=== PATIENT | female | born 1945 | race Caucasian/White ===

== ENCOUNTER → 2016-03-30 | Outpatient (CLI) | payer MEDICARE, OTHER ==
--- NOTE | 2016-03-31 08:16 | BD ---
EXAMINATION TYPE: MG DEXA axial skeleton. DATE OF EXAM: 03/30/2016 3:04 PM COMPARISON: NONE CLINICAL HISTORY: Z78.0 POST MENOPAUSAL W/O HRT Height: 62 Weight: 138 FRAX RISK QUESTIONS: Alcohol (3 or more units per day): NO Family History (Parent hip fracture): NO Glucocorticoids (More than 3mos): NO (Ex: prednisone, prednisolone, methylprednisolone, dexamethasone, and hydrocortisone). History of Fracture in Adulthood: NO Secondary Osteoporosis: NO 1. Type 1 Diabetes: NO 2. Hyperthyroidism: NO 3. Menopause before 45: NO 4. Malnutrition: NO 5. Chronic liver disease: NO Rheumatoid Arthritis: NO Current Tobacco Use: NO RISK FACTORS HISTORY OF: Family History of Osteoporosis: NONE AWARE OF Drink Alcohol: RARE Active: YES Diet low in dairy products/other sources of calcium: YES, LOW Postmenopausal woman: 53 Lost more than 2 inches in height since high school: NO Adrenal Insufficiency: NO MEDICATIONS: Additional Medications: BP MEDS INCLUDING EYES, VIT D3 2000MG, STATINS FOR CHOLESTEROL , Additional History: GLUCOMA, HYPERTENSION, EXAM MEASUREMENTS: Bone mineral densitometry was performed using the [employer] System. Bone mineral density as measured about the Lumbar spine is: ----- L1-L4(G/cm2): 1.205 T Score Values are as follows: ----- L1: -0.2 ----- L2: -0.6 ----- L3: 0.4 ----- L4: 0.9 ----- L1-L4: 0.2 Bone mineral density THIS IS HER FIRST BONE DENSITY TEST.......BASELINE Bone mineral density about the R hip (g/cm2): 0.866 Bone mineral density about the L hip (g/cm2): 0.841 T Score values are as follows: -----R Neck: -1.2 -----L Neck: -1.4 -----R Intertrochanter: -2.1 -----L Intertrochanter: -2.5 Bone mineral density FIRST BONE DENSITY TEST TODAY.....BASELINE FRAX %'S: FOR MAJOR OSTEOPOROSIS FX: 9.8%....FOR HIP FX: 1.3% PROBABILITY OF FX IN 10 YRS TIME IMPRESSION: Osteopenia in both hips. (T Score between -2.5 and -1 as noted by T score values There is slightly increased risk of fracture and the patient may be considered for treatment. Re-Screen 1-2 years. NOTE: T-SCORE=SD OF THE YOUNG ADULT MEAN.
--- NOTE | 2016-03-31 10:51 | MM ---
Reason for exam: screening (asymptomatic). Last mammogram was performed 3 years and 8 months ago. Physical Findings: A clinical breast exam by your physician is recommended on an annual basis and results should be correlated with mammographic findings. MG 3D Screening Mammo W/Cad Bilateral CC and MLO view(s) were taken. Prior study comparison: July 24, 2012, bilateral digital screening mammo w/CAD. February 27, 2011, bilateral digital screening mammo w/CAD. There are scattered fibroglandular densities. No significant changes when compared with prior studies. ASSESSMENT: Negative, BI-RAD 1 RECOMMENDATION: Routine screening mammogram of both breasts in 1 year.
== END | disposition home or self-care (01) ==
LOC: RADMAMWWP 14:25
PROVIDERS: ATTEND Family Medicine
DX: Z12.31 Encounter for screening mammogram for malignant neoplasm of breast (principal); M85.80 Other specified disorders of bone density and structure, unspecified site; Z78.0 Asymptomatic menopausal state
CPT/HCPCS: 77080; 77063; G0202

== ENCOUNTER → 2017-12-26 | Outpatient (CLI) | payer MEDICARE, OTHER ==
--- NOTE | 2017-12-27 13:01 | MM ---
Reason for exam: screening (asymptomatic). Last mammogram was performed 1 year and 9 months ago. History: Patient is postmenopausal. MG 3D Screening Mammo W/Cad Bilateral CC and MLO view(s) were taken. Prior study comparison: March 30, 2016, bilateral MG 3d screening mammo w/cad. July 24, 2012, bilateral digital screening mammo w/CAD. The breast tissue is heterogeneously dense. This may lower the sensitivity of mammography. No discrete abnormallity. No significant new finding since most recent study. ASSESSMENT: Negative, BI-RAD 1 RECOMMENDATION: Routine screening mammogram of both breasts in 1 year.
== END ==
LOC: RADMAMWWP 16:15
PROVIDERS: ATTEND Family Medicine
DX: Z12.31 Encounter for screening mammogram for malignant neoplasm of breast (principal)
CPT/HCPCS: 77063; 77067

== ENCOUNTER → 2018-02-04 | Outpatient (CLI) | payer MEDICARE, OTHER ==
--- NOTE | 2018-02-04 12:08 | CT ---
EXAMINATION TYPE: CT abdomen pelvis w con DATE OF EXAM: 02/04/2018 HISTORY: Follow up failed colonoscopy and failed BE. CT DLP: 977mGycm Automated Exposure Control for Dose Reduction was Utilized. CONTRAST: CT scan of the abdomen and pelvis is performed with IV Contrast, patient injected with 100 mL of Isov ue M300. COMPARISON: None FINDINGS: LUNG BASES: No significant abnormality is appreciated. LIVER/GB: No significant abnormality is appreciated. PANCREAS: No significant abnormality is seen. SPLEEN: No significant abnormality is seen. ADRENALS: No significant abnormality is seen. KIDNEYS: No significant abnormality is seen. BOWEL: The oral contrast reaches level of the proximal sigmoid colon making evaluation distal bowel s lightly suboptimal. There is no suspicious dilatation of stomach or duodenal sweep. There is no suspi cious small or large bowel dilatation. There are diverticula in the sigmoid colon. There is moderate wall thickening with poor distention in the mid to distal sigmoid colon in the left pelvis axial flex ge 73 . If this is area of failed colonoscopy and/or enema study, neoplasm needs to BE considered . N o suspicious adjacent adenopathy is present. There is mild adjacent fluid and/or fat stranding with s ome sinus tract and/or fistula formation noted for reference axial image 73 between portions of the s igmoid colon. These findings make this area more suspicious. UTERUS/ADNEXA: Heterogeneous anteverted uterus is seen with small calcific focus axial image 75. No s uspicious adnexal masses are present. LYMPH NODES: No greater than 1cm abdominal or pelvic lymph nodes are appreciated. OSSEOUS STRUCTURES: Moderate to advanced disc space narrowing with vacuum disc phenomenon L5-S1 level is present. Mild to moderate axial joint space loss in both hips is seen OTHER: Attention to mid to distal sigmoid colon centered left pelvis as detailed above. Consider surg ical exploration given patient history based on clinical correlation. IMPRESSION: No significant acute finding is seen to account for patient's clinical symptoms.
== END | disposition home or self-care (01) ==
LOC: RADCTMAIN 09:45
PROVIDERS: ATTEND Family Medicine
DX: K63.5 Polyp of colon (principal); Z01.812 Encounter for preprocedural laboratory examination
CPT/HCPCS: 82565; 84520; 74177; 36415; Q9967

== ENCOUNTER → 2018-03-18 | Outpatient (CLI) | payer MEDICARE ==
--- NOTE | 2018-03-18 11:48 | FL ---
EXAMINATION TYPE: FL barium enema DATE OF EXAM: 03/18/2018 COMPARISON: CT dated 02/04/2018 HISTORY: Abnormal CT. Prior incomplete colonoscopy. Positive cologaurd exam. TECHNIQUE: A double contrast barium enema study is performed. 1 minute and 59 seconds of fluoroscopy was utilized with 54 fluoroscopic images saved. 1200 mL of liquid polibar plus was utilized. FINDINGS: Academic Affairs Vice President view of the abdomen shows overall non-obstructive bowel gas pattern. 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 There are numerous sigmoid diverticula. Within the distal sigmoid colon at the location seen on the exam of 02/04/2018 there is a long segment persisten t narrowing that when correlated with the prior CT remain suspicious for neoplasm. Alternatively this could represent sequela of chronic diverticulitis. Numerous diverticula are seen throughout the colo n. Appendix is seen and within normal limits. No evidence of contrast extravasation. IMPRESSION: 1. Long segment bowel wall thickening of the sigmoid colon with corresponding with the prior CT findi ngs of the CT abdomen pelvis on 02/04/2018 are suspicious for sigmoid colonic neoplasm. Alternatively this could relate to sequela of chronic diverticulitis. 2. 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
== END ==
LOC: RADFLMAIN 08:45
PROVIDERS: ATTEND Family Medicine
DX: K63.89 Other specified diseases of intestine (principal)
CPT/HCPCS: 74270

== ENCOUNTER → 2018-04-08 | Outpatient (CLI) | payer MEDICARE ==
--- NOTE | 2018-04-08 11:34 | ECHOS ---
STRESS ECHOCARDIOGRAM DATE OF SERVICE: 04/08/2018 INDICATIONS: Abnormal EKG and preop cardiac assessment. MEDICATIONS: Pravastatin, Timolol, aspirin. BASELINE HEART RATE: 77 BASELINE BLOOD PRESSURE: 175/86 MAXIMUM HEART RATE: 136 MAXIMUM BLOOD PRESSURE: 207/64 85% MPHR: 127 100% MPHR: 149 METS: 8.5 MAXIMUM STAGE REACHED: III TOTAL EXERCISE TIME: 7 minutes CLINICAL INFORMATION: STRESS DATA: Pretesting physical examination showed a heart rate of 77, pressure is 175/86 mmHg. Baseline EKG showed sinus mechanism with ST changes in the inferolateral leads. The patient exercised on the treadmill according to Fan protocol for a total of 7 minutes and achieved 8.5 METs. Max heart rate was 136 which is about 88, which is about 91% of maximum predicted heart rate. Maximum blood pressure was 207/64 mmHg. Clinically the patient did not have any symptoms of chest pain or discomfort but the EKG showed about 2 mm horizontal and downsloping ST-segment changes quite concerning for ischemia. ECHOCARDIOGRAM IMAGES: On echo from parasternal long axis view, parasternal short axis view, apical 4 chambers and apical 2 chamber view were obtained as the baseline images, at peak heart rate, as well as on recovery. The baseline echocardiographic images did show a basal hypokinesia at baseline as well as at peak heart rate as well as on recovery. CONCLUSION: 1. Good exercise tolerance. 2. Abnormal EKG in response to exercise. 3. Abnormal echocardiogram in response to exercise with evidence of inferior basal wall motion abnormalities likely represent prior myocardial infarction without any evidence of inducible ischemia noted at this point. MMODL / IJN: [id number] /
== END ==
LOC: RADNMMAIN 08:58
PROVIDERS: ATTEND Family Medicine
DX: R94.31 Abnormal electrocardiogram [ECG] [EKG] (principal)
CPT/HCPCS: 93351

== ENCOUNTER → 2018-04-11 | Outpatient (CLI) | payer MEDICARE ==
--- NOTE | 2018-04-11 09:46 | XR ---
EXAMINATION TYPE: XR chest 2V DATE OF EXAM: 04/11/2018 COMPARISON: NONE HISTORY: Presurgical study. TECHNIQUE: Frontal and lateral views of the chest are obtained. FINDINGS: There is no focal air space opacity, pleural effusion, or pneumothorax seen. The cardiac silhouette size is within normal limits. The osseous structures are intact. IMPRESSION: No acute cardiopulmonary process.
[2018-04-11 09:51] LABS: Basophils % (A) 1 %; Eosinophils # (A) 0.1 k/uL (0-0.7); Eosinophils % (A) 1 %; HCT 45.4 % (34.0-46.0); Lymphocytes # (A) 1.9 k/uL (1.0-4.8); Lymphocytes % (A) 36 %; MCH 31.2 pg (25.0-35.0); MCHC 32.9 g/dL (31.0-37.0); MCV 94.7 fL (80.0-100.0); Mean Platelet Volume 7.5; Monocytes # (A) 0.3 k/uL (0-1.0); Monocytes % (A) 5 %; Neutrophils # (A) 2.9 k/uL (1.3-7.7); Neutrophils % (A) 55 %; Platelet Count 202 k/uL (150-450); RBC 4.79 m/uL (3.80-5.40); RDW 12.6 % (11.5-15.5); WBC 5.3 k/uL (3.8-10.6)
[2018-04-11 09:55] LABS: Prothrombin Time 10.5 sec (9.0-12.0)
[2018-04-11 10:56] LABS: Erythrocyte Sedimentation Rate 15 mm/hr (0-20)
[2018-04-11 17:15] LABS: Albumin 4.5 g/dL (3.80-4.90); Albumin/Globulin Ratio 1.5 (1.60-3.17); Anion Gap 9.8 mmol/L (4.00-12.00); C Reactive Protein 0.5 mg/dL (0.0-0.8); Calcium 9.7 mg/dL (8.7-10.3); Carbon Dioxide 27.2 mmol/L (21.6-31.8); LDL Cholesterol,Calculated 112.6 mg/dL (0.0-131.0); Potassium 4.3 mmol/L (3.5-5.5); Total Bilirubin 0.5 mg/dL (0.3-1.2); Total Protein 7.5 g/dL (6.2-8.2); VLDL Calculation 27.4 mg/dL (5.00-40.00)
[2018-04-11 17:17] LABS: Iron Saturation 23.77 (12.00-45.00)
[2018-04-11 19:14] LABS: Hemoglobin A1C 5.8 % (4.0-6.0)
== END ==
LOC: LABWHC1 08:22
PROVIDERS: ATTEND Family Medicine
DX: Z01.810 Encounter for preprocedural cardiovascular examination (principal); K00-K95 Diseases of the digestive system; K63.5 Polyp of colon; E78.2 Mixed hyperlipidemia; R73.01 Impaired fasting glucose; R94.31 Abnormal electrocardiogram [ECG] [EKG]
CPT/HCPCS: 36415; 71046; 80053; 80061; 83036; 83540; 83550; 83880; 84443; 85025; 85610; 85652; 86140

== ENCOUNTER 2018-04-24 10:01 | Inpatient (IN) | payer MEDICARE ==
[2018-04-17 10:53] VITALS: BMI 24.7
[~2018-04-24 10:01] MED LIST: DEXAMETHASONE SOD PHOSPHATE 10 MG/ML 1 ML VIAL IV ONE; LIDOCAINE 1% 20 ML VIAL (10MG/ML) FOR IV START INTRADERMA PRN; MIDAZOLAM (PF) 2 MG/2 ML VIAL IV PRN; ONDANSETRON 4 MG/2 ML VIAL IVP ONE; SCOPOLAMINE 1.5MG/72HR PATCH TRANSDERM ONE; ceFAZolin IN SWFI 2 GM/20 ML SYRINGE IVP ONE; metroNIDAZOLE-NS PMX 500 MG in SALINE 1 100ML.BAG IVPB ONE
[2018-04-24] MEDS ORDERED: fentaNYL (PF) 50 MCG/ML 2 ML AMP IV ONE (11:21)
[2018-04-24] MEDS ORDERED: HEPARIN SODIUM,PORCINE 5,000 UNIT/ML 1 ML VIAL SQ ONE (11:32)
[2018-04-24] MEDS ORDERED: ONDANSETRON 4 MG/2 ML VIAL IVP PRN (11:44)
[2018-04-24] MEDS ORDERED: NALOXONE 0.4 MG/ML 1 ML VIAL IV PRN ×2 (11:44→12:06)
[2018-04-24] MEDS ORDERED: NALBUPHINE 10 MG/ML (1 ML AMP) IV PRN (11:44)
[2018-04-24] MEDS ORDERED: ROPIVACAINE 250 MG, HYDROMORPHONE (PF) 5 MG in SODIUM CHLORIDE 0.9% 200 ML EPIDURAL PRN (11:44)
[2018-04-24] MEDS: LACTATED RINGERS 1,000 ML IV SCH (11:46)
[2018-04-24] MEDS ORDERED: GLYCOPYRROLATE 0.2 MG/ML 2 ML VIAL ONE (11:53)
[2018-04-24] MEDS ORDERED: LIDOCAINE 1% INJ 10MG/ML (20 ML MDV) ONE (11:53)
[2018-04-24] MEDS ORDERED: fentaNYL (PF) 50 MCG/ML 2 ML AMP ONE (11:53)
[2018-04-24] MEDS ORDERED: KETOROLAC 30 MG/ML 1 ML VIAL ONE (11:53)
[2018-04-24] MEDS ORDERED: ROCURONIUM BROMIDE 10 MG/ML 10 ML VIAL IV ONE (11:53)
[2018-04-24] MEDS ORDERED: MIDAZOLAM 2 MG/2 ML VIAL ONE (11:53)
[2018-04-24] MEDS ORDERED: NEOSTIGMINE 1 MG/ML 10 ML VIAL ONE (11:53)
[2018-04-24] MEDS ORDERED: PROPOFOL 10 MG/ML 20 ML VIAL IV ONE (11:53)
[2018-04-24] MEDS ORDERED: ePHEDrine SULFATE/0.9% NACL/PF 50 MG/5 ML SYRINGE IV ONE (11:53)
[2018-04-24] MEDS ORDERED: ROPIVACAINE 250 MG, fentaNYL (PF) 1,250 MCG in SODIUM CHLORIDE 0.9% 175 ML EPIDURAL PRN (12:06)
[2018-04-24] MEDS ORDERED: BUPIVACAIN-EPI 0.5%-1:200,000 30 ML VIAL SQ ONE ×2 (12:24)
[2018-04-24] MEDS ORDERED: LACTATED RINGERS 1,000 ML IV ONE ×4 (14:02→18:22)
[2018-04-24] MEDS ORDERED: traMADol 50 MG TAB PO PRN (16:18)
--- NOTE | 2018-04-24 16:18 | P.OP ---
Date of Procedure: 04/24/18 Preoperative Diagnosis: Sigmoid colon stricture Postoperative Diagnosis: same Procedure(s) Performed: Robotic sigmoid colon resection Anesthesia: GETA Suction Dredge Dumping Supervisor #1: Rosa Holbrook Estimated Blood Loss (ml): 100 Pathology: other (sigmoid colon) Condition: stable Disposition: PACU Indications for Procedure: The patient had presented for colonoscopy. It was unsuccessful. Barium enema showed a long sigmoid shock sure. CT showed no evidence of anything concerning for cancer. Reccommendation was for sigmoid colon resection Description of Procedure: The patient's taken the operative suite where she is prepped and draped in the usual sterile manner under a general endotracheal anesthetic. An incision was made to the right of the umbilicus and an optical trocar was placed into the abdominal cavity. Pneumoperitoneum was established with CO2 gas. Sites are chosen for accessory trochars needs are placed through small skin incisions. A long segment of colon was adherent to the left pelvic sidewall, tube and ovary. The liver, diaphragm, large and small bowel were normal where they were seen. There was a 7 or 8 mm splenule noted in the omentum all the left upper quadrant. The patient was placed into reverse Trendelenburg and the paracolic gutter and splenic flexure were mobilized with harmonic scissors. The patient was then able to be placed in Trendelenburg and the small bowel was allowed to fall back out of the pelvis. Placed in a slight right Toldt. The remaining paracolic gutter was then mobilized. The colon was then mobilized off the pelvic sidewall, tube and ovary. The ureters were then carefully examined and noted to be unremarkable bilaterally. Site was chosen proximally for resection and opening was made in the mesentery. The mesentery was then taken down with a vessel sealer. The sigmoidal vessels were identified and they were secured with clips then divided with the vessel seal. Mesentery was further taken down distally to a portion of this colon which was soft. Once that was adequately freed a linear stapler was placed and fired proximally and distally. The specimen was placed out of the way. The paracolic gutter and pelvis were then irrigated and aspirated. Everything appeared to be hemostatic. It appeared a EEA anastomosis would be most beneficial. Therefore the specimen was placed near the proximal portion of the colon and it was grasped with a Jocelyn clamp through the trocar. The instruments were brought back. The left sided trocar was removed while meaning obtaining control of the specimen.. The skin and fascia were incised and bluntly opened along the direction of their fibers. The specimen was removed. The proximal portion of the bowel was then brought up. That Portion still felt a little rubbery so an additional segment was resected. The mesentery was taken down with harmonic scissors. Then a soft portion was entered of fatty tissue. The pursestring suture was placed and fired. The distal section was resected and passed off. The bowel was sized and a 29 EEA and a 29 EEA anvil was placed. The pursestring was tied down. The bowel was dropped back into the abdominal cavity. The peritoneum and posterior fascia was closed. The muscle was allowed to fall back together. Pneumoperitoneum was then reestablished. The anvil was grasped and brought down into the pelvis. I then placed a sizer per rectum and it passed easily. The stapler was then placed. The attachment prong was advanced until the orange portion was seen. An assistant chief train dispatcher held the stapler. Then robotically the anvil was advanced to the attachment prong. It did sat in place nicely. Suction Dredge Dumping Supervisor then closed the stapler until it was in the mid green portion as I ensured no redundant fatty tissue was in the staple line. The stapler was closed and fired. It was derotated and removed. The pelvis was filled up with sterile saline. A rigid sigmoidoscope was inserted and the bowel was occluded proximally. The distal portion was insufflated multiple times and was noted to have an airtight anastomosis. The excess irrigant was suctioned out. The splenic flexure and paracolic gutter were examined and noted to be hemostatic. The pneumoperitoneum was released. The trochars were removed. The fascia at the larger trocar sites was closed with 0 Vicryl. The skin was closed with sanjuana. Sterile dressings were applied. She tolerated the procedure without difficulty and was taken r ecovery room in satisfactory condition. According to or personnel all counts ARE correct.
[2018-04-24] MEDS ORDERED: HYDROmorphone 0.5 MG/0.5 ML SYRINGE IVP PRN (16:24)
[2018-04-24] MEDS ORDERED: ALPRAZolam 0.25 MG TAB PO PRN (16:26)
[2018-04-24] MEDS ORDERED: MIDAZOLAM 2 MG/2 ML VIAL IVP ONE ×2 (17:46→17:51)
[2018-04-24] MEDS ORDERED: HALOPERIDOL LACTATE 5 MG/ML 1 ML VIAL IVP ONE (18:00)
[2018-04-24] MEDS: KETOROLAC 30 MG/ML 1 ML VIAL IVP SCH (21:21)
[2018-04-24] MEDS: CARVEDILOL 3.125 MG TAB PO SCH (21:21)
[2018-04-24] MEDS: METOCLOPRAMIDE 5 MG/ML 2 ML VIAL IVP SCH (21:21)
[2018-04-24] MEDS: ceFAZolin 1,000 MG in DEXTROSE/WATER 1 50ML.BAG IVPB SCH (21:22)
[2018-04-24] MEDS: FAMOTIDINE 20 MG TAB PO SCH (21:22)
[2018-04-24] MEDS: D5-0.45% NACL WITH KCL 20MEQ/L 1,000 ML IV SCH (21:22)
[2018-04-24] MEDS: HEPARIN SODIUM,PORCINE 5,000 UNIT/ML 1 ML VIAL SQ SCH (21:23)
[2018-04-24] MEDS: metroNIDAZOLE-NS PMX 500 MG in SALINE 1 100ML.BAG IVPB SCH (22:23)
[2018-04-25] MEDS: METOCLOPRAMIDE 5 MG/ML 2 ML VIAL IVP SCH ×4 (01:53→23:53)
[2018-04-25] MEDS: KETOROLAC 30 MG/ML 1 ML VIAL IVP SCH ×4 (01:53→23:53)
[2018-04-25] MEDS: ceFAZolin 1,000 MG in DEXTROSE/WATER 1 50ML.BAG IVPB SCH (05:05)
[2018-04-25] MEDS: metroNIDAZOLE-NS PMX 500 MG in SALINE 1 100ML.BAG IVPB SCH (05:27)
[2018-04-25] MEDS: LACTATED RINGERS 1,000 ML IV SCH (05:28)
[2018-04-25] MEDS: D5-0.45% NACL WITH KCL 20MEQ/L 1,000 ML IV SCH ×2 (07:18→23:54)
[2018-04-25 08:17] LABS: Basophils % (A) 0 %; Eosinophils # (A) 0.1 k/uL (0-0.7); Eosinophils % (A) 1 %; HCT 37.1 % (34.0-46.0); HGB 12.1 gm/dL (11.4-16.0); Lymphocytes # (A) 0.8 k/uL (1.0-4.8); Lymphocytes % (A) 8 %; MCH 31.3 pg (25.0-35.0); MCHC 32.6 g/dL (31.0-37.0); MCV 96.1 fL (80.0-100.0); Mean Platelet Volume 7.3; Monocytes # (A) 0.4 k/uL (0-1.0); Monocytes % (A) 5 %; Neutrophils # (A) 8.1 k/uL (1.3-7.7); Neutrophils % (A) 86 %; Platelet Count 177 k/uL (150-450); RBC 3.86 m/uL (3.80-5.40); RDW 12.7 % (11.5-15.5); WBC 9.4 k/uL (3.8-10.6)
[2018-04-25 08:37] LABS: Albumin 3.1 g/dL (3.5-5.0); Calcium 8.7 mg/dL (8.4-10.2); Potassium 4.2 mmol/L (3.5-5.1); Total Bilirubin 0.4 mg/dL (0.2-1.3)
[2018-04-25] MEDS: CARVEDILOL 3.125 MG TAB PO SCH ×2 (10:15→18:19)
[2018-04-25] MEDS: HEPARIN SODIUM,PORCINE 5,000 UNIT/ML 1 ML VIAL SQ SCH ×2 (10:20→21:41)
[2018-04-25] MEDS: TIMOLOL 0.5% OPHTH DROPS 5 ML BTL BOTH EYES SCH (10:21)
[2018-04-25] MEDS: FAMOTIDINE 20 MG TAB PO SCH ×2 (10:22→21:41)
[2018-04-25] MEDS: ASPIRIN 81 MG PO SCH (10:22)
--- NOTE | 2018-04-25 11:14 | P.PN ---
Progress Note - Text Progress Note Date: 04/25/18 Postoperative day #1 status post robotic sigmoid resection ,epidural catheter placed for postoperative analgesia, patient doing well epidural site okay, patient currently on combination of epidural infusion solution of Ropivacaine 0.0625% and Fentanyle , per mL the infusion rate at 2 ml per hour , patient had no motor deficit epidural site okay , vital signs stable ,VAS 2/10 , Assessment and plan= post operative day #1 patient doing well ,pain well controlled , there is no anesthesia related complications
--- NOTE | 2018-04-25 12:25 | P.PN ---
Subjective Progress Note Date: 04/25/18 Principal diagnosis: S/P robotic sigmoid colon resection The patient is postop 1 from a robotic sigmoid colon resection. She feels well, denies pain, denies nausea or vomiting. Has been standing at bedside. Using the Incentive spirometry. Objective - Vital Signs Vital signs: Vital Signs Temp 97.6 F 04/25/18 07:00 Pulse 59 L 04/25/18 07:00 Resp 12 04/25/18 07:00 BP 95/55 04/25/18 07:00 Pulse Ox 96 04/25/18 07:00 Intake & Output 04/24/18 04/25/18 04/25/18 18:59 06:59 18:59 Intake Total 3600 800 Output Total 250 1300 Balance 3350 -500 Intake: IV 3600 Oral 800 Output: Urine 150 1300 Estimated Blood Loss 100 Other: Voiding Method Indwelling Catheter Indwelling Catheter - Constitutional General appearance: Present: cooperative, no acute distress - Respiratory Respiratory: bilateral: CTA - Cardiovascular Rhythm: regular - Gastrointestinal General gastrointestinal: Present: normal bowel sounds, soft. Absent: distended Localized gastrointestinal: surgical scar: diffuse (Dressings are intact clean and dry) - Labs CBC & Chem 7: 04/25/18 07:42 04/25/18 07:42 Labs: Abnormal Lab Results - Last 24 Hours (Table) 04/25/18 04/25/18 Range/Units 07:42 07:42 Neutrophils # 8.1 H (1.3-7.7) k/uL Lymphocytes # 0.8 L (1.0-4.8) k/uL Sodium 135 L (137-145) mmol/L Glucose 175 H (74-99) mg/dL Total Protein 6.0 L (6.3-8.2) g/dL Albumin 3.1 L (3.5-5.0) g/dL Assessment and Plan (1) Stricture of sigmoid colon Current Visit: Yes Status: Acute Code(s): K56.699 - OTHER INTESTNL OBST UNSP TO PARTIAL VERSUS COMPLETE OBST SNOMED Code(s): 9662675 (2) Diverticulitis Current Visit: Yes Status: Acute Code(s): K57.92 - DVTRCLI OF INTEST, PART UNSP, W/O PERF OR ABSCESS W/O BLEED SNOMED Code(s): 207493516 Plan: The patient is doing well. We will wean off the epidural and discontinue later today. Increase diet and activity as tolerated. Progressing well.
--- NOTE | 2018-04-25 14:15 | P.CONS ---
History of Present Illness - Reason for Consult Consult date: 04/25/18 Medical management postop Requesting physician: Rosa Holbrook - Chief Complaint Robotic sigmoid resection - History of Present Illness This is a 72-year-old pleasant female well known to my practice., She has underlying history of silent IN for which she was cleared through a negative stress test for ischemia, however underlying wall inf wall abnormality, hyperlipidemia, diverticular disease for which a routine colonoscopy was not able to proceed with surveillance screening, this was followed thereafter by by an enema which she did not tolerate then further testing including: A guarded was noted to be positive, CT ccolography cannot be done as she cannot tolerate the prep, a repeat barium enema usingbentyl and antiemetic showed long sigmoid strictures noted, patient did not have any infectious bowel immediately prior to admission it was decided that she undergo sigmoid resection as imaging notated cannot rule out/ possible malignancy, CEA and AFP is normal. Intraoperatively, no mass was found, specimen was sent for pathology, post op diagnosis was sigm oid colon strictures. Patient was seen postop, no nausea no vomiting, patient has some bowel sounds already noted, no chest pain no shortness of breath Review of Systems Constitutional: Reports as per HPI, Denies anorexia, Denies chills, Denies chronic headaches, Denies chronic pain, Denies daytime sleepiness, Denies fatigue, Denies fever, Denies lethargy, Denies malaise, Denies night sweats, Denies poor appetite, Denies sweats, Denies weakness, Denies weight gain, Denies weight loss Ears, nose, mouth and throat: Reports as per HPI, Denies ant. neck pain, Denies bleeding gums, Denies dental pain, Denies dysphagia, Denies epistaxis, Denies headache, Denies hoarseness, Denies mouth pain, Denies nasal congestion, Denies nasal discharge, Denies neck fullness/pressure, Denies neck lump, Denies nose pain, Denies odynophagia, Denies post-nasal drip, Denies sinus pain, Denies sinus pressure, Denies swelling in mouth, Denies swelling in throat, Denies sore throat, Denies vertigo, Denies voice changes Cardiovascular: Reports as per HPI, Denies chest pain, Denies claudication, Denies decreased exercise tolerance, Denies dyspnea on exertion, Denies edema, Denies high blood pressure, Denies irregular heart beat, Denies leg edema, Denies lightheadedness, Denies orthopnea, Denies palpitations, Denies paroxysmal nocturnal dyspnea, Denies phlebitis, Denies rapid heart beat, Denies shortness of breath, Denies syncope Respiratory: Reports as per HPI, Denies congestion, Denies cough, Denies cough with sputum, Denies dyspnea, Denies excessive sputum, Denies hemoptysis, Denies home oxygen, Denies pain, Denies pain on inspiration, Denies pleurisy, Denies respiratory infections, Denies sleep apnea, Denies snoring, Denies wheezing Gastrointestinal: Reports as per HPI, Denies abdominal pain, Denies belching, Denies bloating, Denies BRBPR, Denies change in bowel habits, Denies coffee ground emesis, Denies constipation, Denies diarrhea, Denies dyspepsia, Denies early satiety, Denies excessive gas, Denies heartburn, Denies hematemesis, Denies hematochezia, Denies indigestion, Denies jaundice, Denies lactose intolerance, Denies loss of appetite, Denies melena, Denies nausea, Denies vomiting Genitourinary: Reports as per HPI, Denies abnormal vaginal bleeding, Denies decreased libido, Denies difficulty conceiving, Denies difficulty voiding, Denies dysmenorrhea, Denies dyspareunia, Denies dysuria, Denies flank pain, Denies genital sores, Denies hematuria, Denies hot flashes, Denies incomplete emptying, Denies kidney stones, Denies menorrhagia, Denies mixed incontinence, Denies nocturia, Denies pelvic pain, Denies post void dribbling, Denies , Denies prolapse symptoms, Denies stress incontinence, Denies urge in continence, Denies urgency, Denies urinary frequency, Denies vaginal discharge, Denies vaginal dryness, Denies vaginal itching, Denies vaginal odor Menstruation: Reports as per HPI Musculoskeletal: Reports as per HPI Integumentary: Reports as per HPI Neurological: Reports as per HPI, Denies aphasia, Denies ataxia, Denies balance difficulties, Denies burning pain, Denies change in mentation, Denies change in smell/taste, Denies change in speech, Denies confusion, Denies convulsions, Denies double vision, Denies gait dysfunction, Denies head injury, Denies headaches, Denies hearing difficulties, Denies lack of coordination, Denies loss of vision, Denies memory loss, Denies migraines, Denies motor disturbance, Denies numbness, Denies paralysis, Denies paresthesias, Denies seizures, Denies sensory deficit, Denies spasticity, Denies syncope, Denies tic, Denies tingling, Denies transient paralysis, Denies tremors, Denies vertigo, Denies weakness, Denies visual changes Psychiatric: Reports as per HPI Endocrine: Reports as per HPI Hematologic/Lymphatic: Reports as per HPI Allergic/Immunologic: Reports as per HPI Past Medical History Past Medical History: Eye Disorder, Hyperlipidemia, Myocardial Infarction (IN) Additional Past Medical History / Comment(s): diverticulitis and blockage,glaucoma blane eyes Last Myocardial Infarction Date:: unk History of Any Multi-Drug Resistant Organisms: None Reported Additional Past Surgical History / Comment(s): blane frozen shoulders,ganglion cyst removed from wrist Past Anesthesia/Blood Transfusion Reactions: Motion Sickness, Postoperative Nausea & Vomiting (PONV) Additional Past Anesthesia/Blood Transfusion Reaction / Comm: no hx blood transfusion Smoking Status: Never smoker - Past Family History Mother Family Medical History: Cancer Father Family Medical History: Coronary Artery Disease (CAD), Diabetes Mellitus Brother(s) Family Medical History: Coronary Artery Disease (CAD) Sister(s) History Unknown: Yes Daughter(s) Family Medical History: Thyroid Disorder Son(s) History Unknown: Yes (Diverticular disease) Medications and Allergies Home Medications Medication Instructions Recorded Confirmed Type Aspirin 81 mg PO DAILY 04/17/18 04/24/18 History Carvedilol [Coreg] 3.125 mg PO BID 04/17/18 04/24/18 History Cholecalciferol (Vitamin D3) 2,000 unit PO DAILY 04/17/18 04/24/18 History [Vitamin D3] Cyanocobalamin [Vitamin B-12] 500 mcg PO DAILY 04/17/18 04/24/18 History Pravastatin Sodium [Pravachol] 20 mg PO DAILY 04/17/18 04/24/18 History Timolol 0.5% Ophth Soln [Timoptic 1 drop BOTH EYES QAM 04/17/18 04/24/18 History 0.5% Ophth Soln] ALPRAZolam [Xanax] 0.25 mg PO BID PRN 04/18/18 04/24/18 History Allergies Allergy/AdvReac Type Severity Reaction Status Date / Time acetaminophen Allergy states Verified 04/24/18 17:58 [From Darvocet-N 100] "doesn't help with pain" hydrocodone [From Vicodin] Allergy Anaphylaxis Verified 04/24/18 17:58 propoxyphene Allergy Anaphylaxis Verified 04/24/18 17:58 [From Darvocet-N 100] Physical Exam Vitals: Vital Signs Temp Pulse Resp BP Pulse Ox 04/25/18 07:00 97.6 F 59 L 12 95/55 96 04/24/18 23:00 98.4 F 79 18 103/66 98 04/24/18 22:05 77 18 156/86 95 04/24/18 21:25 97.3 F L 75 18 167/92 98 04/24/18 21:00 73 18 133/79 97 04/24/18 20:53 98 04/24/18 20:00 96.4 F L 83 18 160/78 97 04/24/18 19:30 74 18 144/82 98 04/24/18 19:00 73 18 151/85 97 04/24/18 18:55 80 18 149/84 98 04/24/18 18:40 71 18 167/92 98 04/24/18 18:20 77 15 154/77 99 04/24/18 17:45 65 18 179/92 100 04/24/18 17:15 70 16 154/77 99 04/24/18 17:00 68 16 162/76 100 04/24/18 16:45 63 14 162/77 100 04/24/18 16:30 60 16 162/77 100 04/24/18 16:22 96.9 F L 65 14 162/76 100 Intake and Output 04/24/18 04/25/18 04/25/18 22:59 06:59 14:59 Intake Total 2400 400 Output Total 1250 300 Balance 1150 100 Intake: IV 2000 Oral 400 400 Output: Urine 1150 300 Estimated Blood Loss 100 Other: Voiding Method Indwelling Catheter Indwelling Catheter - Constitutional General appearance: cooperative, no acute distress - EENT Eyes: anicteric sclerae, EOMI, PERRLA, dentition normal, normal appearance ENT: NA/AT, normal oropharynx - Neck Neck: no lymphadenopathy, normal ROM, no other, no rigidity, no stridor, no thyromegaly - Respiratory Respiratory: bilateral: CTA, negative: diminished, dullness, rales - Cardiovascular Rhythm: regular Heart sounds: normal: S1, S2 Abnormal Heart Sounds: no systolic murmur, no diastolic murmur, no rub, no S3 Gallop, no S4 Gallop, no click, no other - Gastrointestinal General gastrointestinal: normal bowel sounds, soft - Integumentary Integumentary: normal - Neurologic Neurologic: CNII-XII intact - Musculoskeletal Musculoskeletal: gait normal, strength equal bilaterally - Psychiatric Psychiatric: A&O x's 3, appropriate affect, intact judgment & insight Results CBC & Chem 7: 04/25/18 07:42 04/25/18 07:42 Labs: Abnormal Lab Results - Last 24 Hours (Table) 04/25/18 04/25/18 Range/Units 07:42 07:42 Neutrophils # 8.1 H (1.3-7.7) k/uL Lymphocytes # 0.8 L (1.0-4.8) k/uL Sodium 135 L (137-145) mmol/L Glucose 175 H (74-99) mg/dL Total Protein 6.0 L (6.3-8.2) g/dL Albumin 3.1 L (3.5-5.0) g/dL Assessment and Plan Plan: 1 sigmoid strictures, requiring robotic sigmoid colectomy with resection, 04/24/2018, postop day #1, patient's doing well, incentive spirometry opiates for pain control, diet per Dr. Melissa advanced to soft diet low residue today 2. History of prior IN, inferior wall, negative stress test, patient has outpatient cardiology already made, continue beta blockers Coreg 3.125 mg twice a day and aspirin daily 3. Hyperlipidemia, pravastatin initiated 4. Anxiety disorder, on when necessary Xanax 5. GI prophylaxis Protonix DVT prophylaxis heparin subcu Thank you Dr. Brink in allowing us to participate in the care of your patient. We'll going to follow her with you during this current hospital stay she is stab le, any changes to her care would be made based on her clinical progress
[2018-04-26] MEDS: KETOROLAC 30 MG/ML 1 ML VIAL IVP SCH ×3 (00:06→12:28)
[2018-04-26] MEDS: D5-0.45% NACL WITH KCL 20MEQ/L 1,000 ML IV SCH (00:06)
[2018-04-26] MEDS: METOCLOPRAMIDE 5 MG/ML 2 ML VIAL IVP SCH ×3 (00:07→12:29)
[2018-04-26 08:02] VITALS: BP 127/79; PULSE 60; RESP 16; TEMP 98
[2018-04-26] MEDS: LACTATED RINGERS 1,000 ML IV SCH (08:51)
[2018-04-26] MEDS: ASPIRIN 81 MG PO SCH (08:57)
[2018-04-26] MEDS: FAMOTIDINE 20 MG TAB PO SCH (08:57)
[2018-04-26] MEDS: CARVEDILOL 3.125 MG TAB PO SCH (08:57)
[2018-04-26] MEDS: HEPARIN SODIUM,PORCINE 5,000 UNIT/ML 1 ML VIAL SQ SCH (08:58)
[2018-04-26] MEDS: TIMOLOL 0.5% OPHTH DROPS 5 ML BTL BOTH EYES SCH (08:58)
--- NOTE | 2018-04-26 12:41 | P.DS ---
Providers Date of admission: 04/24/18 10:01 Expected date of discharge: 04/26/18 Attending physician: Rosa Holbrook Consults: 04/24/18 16:18 Consult Physician Routine Consulting Provider: Radha Ross Consult Reason/Comments: medical management Do you want consulting provider notified?: Yes Primary care physician: Radha Ross - Discharge Diagnosis(es) (1) Stricture of sigmoid colon Current Visit: Yes Status: Acute (2) Diverticulitis Current Visit: Yes Status: Acute Hospital Course: The patient presented for robotic sigmoid resection due to a stricture. She tolerated the procedure without difficulty. She was quickly advanced on her diet and activity. By postop day 2 she was tolerating a diet, having bowel movements, having minimal pain, using incentive spirometry well. [place] to be stable for discharge. Procedures: Robotic sigmoid colectomy Patient Condition at Discharge: Good Plan - Discharge Summary Discharge Rx Participant: No New Discharge Prescriptions: New traMADol HCL [Ultram] 50 - 100 mg PO Q6HR PRN 3 Days #15 tab PRN Reason: Pain Continue Carvedilol [Coreg] 3.125 mg PO BID Cyanocobalamin [Vitamin B-12] 500 mcg PO DAILY Cholecalciferol (Vitamin D3) [Vitamin D3] 2,000 unit PO DAILY Aspirin 81 mg PO DAILY Timolol 0.5% Ophth Soln [Timoptic 0.5% Ophth Soln] 1 drop BOTH EYES QAM Pravastatin Sodium [Pravachol] 20 mg PO DAILY ALPRAZolam [Xanax] 0.25 mg PO BID PRN PRN Reason: Anxiety Discharge Medication List Aspirin 81 mg PO DAILY 04/17/18 [History] Carvedilol [Coreg] 3.125 mg PO BID 04/17/18 [History] Cholecalciferol (Vitamin D3) [Vitamin D3] 2,000 unit PO DAILY 04/17/18 [History] Cyanocobalamin [Vitamin B-12] 500 mcg PO DAILY 04/17/18 [History] Pravastatin Sodium [Pravachol] 20 mg PO DAILY 04/17/18 [History] Timolol 0.5% Ophth Soln [Timoptic 0.5% Ophth Soln] 1 drop BOTH EYES QAM 04/17/18 [History] ALPRAZolam [Xanax] 0.25 mg PO BID PRN 04/18/18 [History] traMADol HCL [Ultram] 50 - 100 mg PO Q6HR PRN 3 Days #15 tab 04/26/18 [Rx] Follow up Appointment(s)/Referral(s): Radha Ross MD [Primary Care Provider] - 1 Week [facility] [NON-STAFF] - Rosa Holbrook DO [Doctor of Osteopathic Medicine] - 1 Week Activity/Diet/Wound Care/Special Instructions: You may shower. Keep the dressings on until Sunday. Sunday the dressings may be removed. If the incisions are rubbing on your clothing or draining a light dressing may be used. No driving while taking pain medications. Diet as tolerated. Expect some bruising by the incisions. A small amount of bleeding with a bowel movement is not abnormal. Call if you develop fever, chills, nausea or vomiting, concerns of wound infection, severe abdominal pain, significant rectal bleeding. Walker will be delivered to the bedside before discharge by [facility] Discharge Disposition: HOME SELF-CARE
--- NOTE | 2018-04-26 15:00 | P.PN ---
Subjective Progress Note Date: 04/26/18 This is a 72-year-old pleasant female well known to my practice., She has underlying history of silent [place] for which she was cleared through a negative stress test for ischemia, however underlying wall inf wall abnormality, hyperlipidemia, diverticular disease for which a routine colonoscopy was not abl e to proceed with surveillance screening, this was followed thereafter by by an enema which she did not tolerate then further testing including: A guarded was noted to be positive, CT ccolography cannot be done as she cannot tolerate the prep, a repeat barium enema usingbentyl and antiemetic showed long sigmoid strictures noted, patient did not have any infectious bowel immediately prior to admission it was decided that she undergo sigmoid resection as imaging notated cannot rule out/ possible malignancy, CEA and AFP is normal. Intraoperatively, no mass was found, specimen was sent for pathology, post op diagnosis was sigmoid colon strictures. Patient was seen postop, no nausea no vomiting, patient has some bowel sounds already noted, no chest pain no shortness of breath 04/26: Patient is doing very well this morning. She is tolerating a regular diet and having bowel movements. Her pain is controlled. Epidural was removed yesterday. She is using her incentive spirometry and greater than 1500 ML's. She has been afebrile, heart rate running between 60s and 80s, blood pressure 127/79, pulse ox 96% on room air. Patient is cleared medically for discharge home. Patient will follow-up with Dr. Rabago in a week. We are prescribing walker for the patient to assist with ambulation. Review Of Systems: Constitutional: No fever, no chills, no night sweats. No weight change. No weakness, fatigue or lethargy. No daytime sleepiness. EENT: No headache. No blurred vision or double vision, no loss of vision. No loss of Hearing, no ringing in the ears, no dizziness. No nasal drainage or congestion. No epistaxis. No sore throat. Lungs: No shortness of breath, cough, no sputum production. No wheezing. Cardiovascular: No chest pain, no lower extremity edema. No palpitations. No paroxysmal nocturnal dyspnea. No orthopnea. No lightheadedness or dizziness. No syncopal episodes. Abdominal: abdominal pain is controlled. No nausea, vomiting. No diarrhea. No constipation. No bloody or tarry stools.. No loss of appetite. Genitourinary: No dysuria, increased frequency, urgency. No urinary retention. Musculoskeletal: No myalgias. No muscle weakness, no gait dysfunction, no frequent falls. No back pain. No neck pain. Integumentary: No wounds, no lesions. No rash or pruritus. No unusual bruising. No change in hair or nails. Neurologic: No aphasia. No facial droop. No change in mentation. No head injury. No headache. No paralysis. No paresthesia. Psychiatric: No depression. No anxiety. No mood swings. Endocrine: No abnormal blood sugars. No weight change. No excessive sweating or thirst. No cold intolerance. No weight change. Objective - Vital Signs Vital signs: Vital Signs Temp 98 F 04/26/18 07:00 Pulse 60 04/26/18 08:00 Resp 16 04/26/18 08:00 BP 127/79 04/26/18 07:00 Pulse Ox 96 04/26/18 07:00 Intake & Output 04/25/18 04/26/18 04/26/18 18:59 06:59 18:59 Intake Total 936 Output Total 500 150 Balance 436 -150 Intake: Intake, IV Titration 640 Amount D5-0.45% NaCl with KCl 640 20Meq/l 1,000 ml @ 80 mls /hr IV .[id number] ARACELI Rx#: [id number] Oral 296 Output: Urine 500 150 Other: Voiding Method Indwelling Catheter Toilet Toilet # Voids 2 # Bowel Movements 1 - Exam General appearance: cooperative, no acute distress - EENT Eyes: anicteric sclerae, EOMI, PERRLA, dentition normal, normal appearance ENT: NA/AT, normal oropharynx - Neck Neck: no lymphadenopathy, normal ROM, no other, no rigidity, no stridor, no thyromegaly - Respiratory Respiratory: bilateral: CTA, negative: diminished, dullness, rales - Cardiovascular Rhythm: regular Heart sounds: normal: S1, S2 Abnormal Heart Sounds: no systolic murmur, no diastolic murmur, no rub, no S3 Gallop, no S4 Gallop, no click, no other - Gastrointestinal General gastrointestinal: normal bowel sounds, soft - Integumentary Integumentary: normal - Neurologic Neurologic: CNII-XII intact - Musculoskeletal Musculoskeletal: gait normal, strength equal bilaterally - Psychiatric Psychiatric: A&O x's 3, appropriate affect, intact judgment & insight - Labs CBC & Chem 7: 04/25/18 07:42 04/25/18 07:42 Assessment and Plan Plan: 1 sigmoid strictures, requiring robotic sigmoid colectomy with resection, 0 04/24/2018, postop day #1, patient's doing well, incentive spirometry opiates for pain control, diet per Dr. Melissa advanced to soft diet low residue today 2. History of prior VA, inferior wall, negative stress test, patient has outpatient cardiology already made, continue beta blockers Coreg 3.125 mg twice a day and aspirin daily 3. Hyperlipidemia, pravastatin initiated 4. Anxiety disorder, on when necessary Xanax 5. GI prophylaxis Protonix DVT prophylaxis heparin subcu Discharge plan: Home. We will order a walker for the patient for home to assist with ambulation. Impression and plan of care have been directed as dictated by the signing physician. Kalpana Lawson nurse practitioner acting as scribe for signing physician.
== END 2018-04-26 15:44 | disposition home or self-care (01) | DRG 330 ==
LOC: 2ORMAIN 10:01 → 4SSUR 16:57
PROVIDERS: ADMIT Surgery; ATTEND Surgery
PROC: 8E0W4CZ Robotic Assisted Procedure of Trunk Region, Percutaneous Endoscopic Approach (ICD-10-PCS; 2018-04-24)
PROC: 0DTN4ZZ Resection of Sigmoid Colon, Percutaneous Endoscopic Approach (ICD-10-PCS; principal; 2018-04-24 12:00)
DX: K56.699 Other intestinal obstruction unspecified as to partial versus complete obstruction (principal); K57.32 Diverticulitis of large intestine without perforation or abscess without bleeding; E78.2 Mixed hyperlipidemia; F41.9 Anxiety disorder, unspecified; I25.2 Old myocardial infarction; H40.9 Unspecified glaucoma; Z79.82 Long term (current) use of aspirin; Z79.899 Other long term (current) drug therapy; Z83.3 Family history of diabetes mellitus; Z86.010 Personal history of colon polyps; Z88.5 Allergy status to narcotic agent; Z82.49 Family history of ischemic heart disease and other diseases of the circulatory system; Z80.8 Family history of malignant neoplasm of other organs or systems; Z83.49 Family history of other endocrine, nutritional and metabolic diseases; Z83.79 Family history of other diseases of the digestive system
CPT/HCPCS: 80053; 85025; 86850; 86900; 86901; 88307; 94760

== ENCOUNTER → 2018-08-22 | Outpatient (CLI) | payer MEDICARE ==
--- NOTE | 2018-08-22 10:28 | BD ---
EXAMINATION TYPE: Axial Bone Density DATE OF EXAM: 08/22/2018 COMPARISON: 2017 CLINICAL HISTORY: Asymptomatic postmenopausal female. Osteoporosis screening. Height: 5 FT 2 IN Weight: 126 FRAX RISK QUESTIONS: RISK FACTORS HISTORY OF: Active: YES Postmenopausal woman: AGE 53 MEDICATIONS: Additional Medications: PREVASTATIN, BLOOD PRESSURE MEDS, ASPIRIN, B12, D3, TIMILOL, BRIMONIDINE Additional History: EXAM MEASUREMENTS: Bone mineral densitometry was performed using the [employer] System. Bone mineral density as measured about the Lumbar spine is: ----- L1-L4(G/cm2): 1.180 T Score Values are as follows: ----- L2: -0.8 ----- L3: 0.2 ----- L4: 0.4 ----- L1-L4: 0.0 Bone mineral density has: DECREASED -3.1 % since study of: 2016 Bone mineral density about the R hip (g/cm2): 0.843 Bone mineral density about the L hip (g/cm2): 0.820 T Score values are as follows: -----R Neck: -1.4 -----L Neck: -1.6 -----R Total: -1.2 -----L Total: -1.6 Bone mineral density has: DECREASED -0.1 % since study of: 2016 IMPRESSION: Osteopenia (T Score between -2.5 and -1). There is slightly increased risk of fracture and the patient may be considered for treatment. Re-Screen 2-5 years. NOTE: T-SCORE=SD OF THE YOUNG ADULT MEAN.
== END | disposition home or self-care (01) ==
LOC: RADBDWWP 09:42
PROVIDERS: ATTEND Family Medicine
DX: Z78.0 Asymptomatic menopausal state (principal); M85.852 Other specified disorders of bone density and structure, left thigh
CPT/HCPCS: 77080

== ENCOUNTER → 2018-12-27 | Outpatient (CLI) | payer MEDICARE ==
--- NOTE | 2018-12-31 09:56 | MM ---
Reason for exam: screening (asymptomatic). Last mammogram was performed 1 year ago. History: Patient is postmenopausal. Physical Findings: A clinical breast exam by your physician is recommended on an annual basis and results should be correlated with mammographic findings. MG 3D Screening Mammo W/Cad Bilateral CC and MLO view(s) were taken. Prior study comparison: December 26, 2017, bilateral MG 3d screening mammo w/cad. March 30, 2016, bilateral MG 3d screening mammo w/cad. The breast tissue is heterogeneously dense. This may lower the sensitivity of mammography. Stable mole superior left breast. No significant changes when compared with prior studies. ASSESSMENT: Negative, BI-RAD 1 RECOMMENDATION: Routine screening mammogram of both breasts in 1 year.
== END | disposition home or self-care (01) ==
LOC: RADMAMWWP 13:06
PROVIDERS: ATTEND Family Medicine
DX: Z12.31 Encounter for screening mammogram for malignant neoplasm of breast (principal)
CPT/HCPCS: 77063; 77067

== ENCOUNTER → 2020-01-29 | Outpatient (CLI) | payer MEDICARE ==
--- NOTE | 2020-01-30 10:48 | MM ---
Reason for exam: screening (asymptomatic). Last mammogram was performed 1 year and 1 month ago. History: Patient is postmenopausal. Physical Findings: A clinical breast exam by your physician is recommended on an annual basis and results should be correlated with mammographic findings. MG 3D Screening Mammo W/Cad Bilateral CC and MLO view(s) were taken. Prior study comparison: December 27, 2018, bilateral MG 3d screening mammo w/cad. December 26, 2017, bilateral MG 3d screening mammo w/cad. The breast tissue is heterogeneously dense. This may lower the sensitivity of mammography. There is no discrete abnormality. No significant changes when compared with prior studies. ASSESSMENT: Negative, BI-RAD 1 RECOMMENDATION: Routine screening mammogram of both breasts in 1 year.
== END | disposition home or self-care (01) ==
LOC: RADMAMWWP 15:47
PROVIDERS: ATTEND Family Medicine
DX: Z12.31 Encounter for screening mammogram for malignant neoplasm of breast (principal)
CPT/HCPCS: 77063; 77067

== ENCOUNTER → 2021-03-04 | Outpatient (CLI) | payer MEDICARE ==
--- NOTE | 2021-03-04 11:52 | BD ---
EXAMINATION TYPE: Axial Bone Density DATE OF EXAM: 03/04/2021 COMPARISON: 2018 CLINICAL HISTORY: disorder of bone. Height: 5'2 Weight: 132 FRAX RISK QUESTIONS: Secondary Osteoporosis: RISK FACTORS HISTORY OF: Postmenopausal woman: y MEDICATIONS: Additional Medications: cholesterol, eyes Additional History: EXAM MEASUREMENTS: Bone mineral densitometry was performed using the [employer] System. Bone mineral density as measured about the Lumbar spine is: ----- L1-L4(G/cm2): 1.190 T Score Values are as follows: ----- L2: -0.7 ----- L3: 0.5 ----- L4: 0.4 ----- L1-L4:0.1 Bone mineral density has: Increased 1.2% since study of: 08/22/2018 Bone mineral density about the R hip (g/cm2): 0.843 Bone mineral density about the L hip (g/cm2): 0.795 T Score values are as follows: -----R Neck: -1.4 -----L Neck: -1.7 -----R Total: -1.3 -----L Total: -1.7 Bone mineral density has: Decreased -1.8% since study of: 08/22/2018 IMPRESSION: Osteopenia (T Score between -2.5 and -1) remains present. There is slightly increased risk of fracture and the patient may be considered for treatment. Re-Screen 2-5 years. NOTE: T-SCORE=SD OF THE YOUNG ADULT MEAN.
--- NOTE | 2021-03-04 13:09 | MM ---
Reason for exam: screening (asymptomatic). Last mammogram was performed 1 year and 1 month ago. History: Patient is postmenopausal. Physical Findings: A clinical breast exam by your physician is recommended on an annual basis and results should be correlated with mammographic findings. MG 3D Screening Mammo W/Cad Bilateral CC and MLO view(s) were taken. XCCM view(s) were taken of the left breast. Prior study comparison: January 29, 2020, bilateral MG 3d screening mammo w/cad. December 27, 2018, bilateral MG 3d screening mammo w/cad. There are scattered fibroglandular densities. There are benign appearing round calcifications bilaterally. There is no discrete abnormality. ASSESSMENT: Benign, BI-RAD 2 RECOMMENDATION: Routine screening mammogram of both breasts in 1 year.
== END | disposition home or self-care (01) ==
LOC: RADBDWWP 10:25
PROVIDERS: ATTEND Family Medicine
DX: Z12.31 Encounter for screening mammogram for malignant neoplasm of breast (principal); M85.89 Other specified disorders of bone density and structure, multiple sites; Z78.0 Asymptomatic menopausal state
CPT/HCPCS: 77063; 77067; 77080

== ENCOUNTER → 2022-03-06 | Outpatient (CLI) | payer MEDICARE ==
--- NOTE | 2022-03-07 08:45 | MM ---
Reason for Exam: Screening (asymptomatic). Last screening mammogram was performed 12 month(s) ago. Patient History: Menarche at age 14. First Full-Term at age 24. Postmenopausal. Risk Values: Madelyn 5 year model risk: 1.6%. NCI Lifetime model risk: 3.4%. Prior Study Comparison: 12/27/2018 Bilateral Screening Mammogram, [facility]. 01/29/2020 Bilateral Screening Mammogram, [facility]. 03/04/2021 Bilateral Screening Mammogram, [facility]. Tissue Density: There are scattered fibroglandular densities. Findings: Analyzed By CAD. There is no suspicious group of microcalcifications or new suspicious mass in either breast. Overall Assessment: Negative, BI-RAD 1 Management: Screening Mammogram of both breasts in 1 year. A clinical breast exam by your physician is recommended on an annual basis and results should be correlated with mammographic findings. Electronically signed and approved by: Alfonso Smith M.D. Radiologis
== END | disposition home or self-care (01) ==
LOC: RADMAMWWP 10:52
PROVIDERS: ATTEND Family Medicine
DX: Z12.31 Encounter for screening mammogram for malignant neoplasm of breast (principal); Z78.0 Asymptomatic menopausal state
CPT/HCPCS: 77063; 77067

== ENCOUNTER → 2023-03-09 | Outpatient (CLI) | payer MEDICARE ==
--- NOTE | 2023-03-09 16:26 | MM ---
Reason for Exam: Screening (asymptomatic). Last screening mammogram was performed 12 month(s) ago. Patient History: Menarche at age 14. First Full-Term at age 24. Postmenopausal. Risk Values: Madelyn 5 year model risk: 1.6%. NCI Lifetime model risk: 3.2%. Prior Study Comparison: 01/29/2020 Bilateral Screening Mammogram, [facility]. 03/04/2021 Bilateral Screening Mammogram, [facility]. 03/06/2022 Bilateral MG 3D screening mammo w/cad, [facility]. Tissue Density: There are scattered fibroglandular densities. Findings: Analyzed By CAD. There is no suspicious group of microcalcifications or new suspicious mass. Overall Assessment: Negative, BI-RAD 1 Management: Screening Mammogram of both breasts in [address] [facility] will attempt to contact patient to return for supplemental views and ultrasound if indicated. Patient should continue monthly self-breast exams. A clinical breast exam by your physician is recommended on an annual basis. This exam should not preclude additional follow-up of suspicious palpable abnormalities. Note on Madelyn scores and lifetime risk: 1. A Madelyn score greater than 3% is considered moderate risk. If this is the case, consider specialist referral to assess eligibility for a risk reducing agent. 2. If overall lifetime risk for the development of breast cancer is 20% or higher, the patient may qualify for future screening with alternating mammogram and breast MRI. Electronically signed and approved by: Rajeev Harrington DO
--- NOTE | 2023-03-09 18:29 | BD ---
EXAMINATION TYPE: Axial Bone Density DATE OF EXAM: 03/09/2023 CLINICAL HISTORY: 77 years old Female. ICD-10 CODE: M89.9 DISORDER OF BONE, UNSPE Height: 62 in Weight: 133 lbs EXAM MEASUREMENTS: Bone mineral densitometry was performed using the [employer] [facility]. Bone mineral density as measured about the Lumbar spine is: ----- L1-L4(G/cm2): 1.167 T Score Values are as follows: ----- L1: -0.6 ----- L2: -0.3 ----- L3: -0.1 ----- L4: 0.3 ----- L1-L4: -0.1 Z Score Values are as follows: ----- L1: 1.3 ----- L2: 1.6 ----- L3: 1.8 ----- L4: 2.2 ----- L1-L4: 1.8 Bone mineral density has: Decreased -1.9% since study of: 03/04/2021 Bone mineral density about the R hip (g/cm2): 0.845 Bone mineral density about the L hip (g/cm2): 0.792 T Score values are as follows: -----R Neck: -1.6 -----L Neck: -1.8 -----R Total: -1.3 -----L Total: -1.7 Z Score values are as follows: -----R Neck: 0.5 -----L Neck: 0.3 -----R Total: 0.6 -----L Total: 0.2 Bone mineral density has: Decreased -0.1% since study of: 03/04/2021 FRAX%s: The graph provided illustrates a 13.0% chance for a major osteoporotic fx and a 3.2% chance f or the hips probability for fx in 10 years time. IMPRESSION: Osteopenia (T Score between -2.5 and -1). There is slightly increased risk of fracture and the patient may be considered for treatment. Re-Screen 2-5 years. NOTE: T-SCORE=SD OF THE YOUNG ADULT MEAN.
== END | disposition home or self-care (01) ==
LOC: RADMAMWWP 12:47
PROVIDERS: ATTEND Family Medicine
DX: Z12.31 Encounter for screening mammogram for malignant neoplasm of breast (principal); M85.89 Other specified disorders of bone density and structure, multiple sites; Z78.0 Asymptomatic menopausal state
CPT/HCPCS: 77063; 77067; 77080

== ENCOUNTER → 2024-03-13 | Outpatient (CLI) | payer MEDICARE ==
--- NOTE | 2024-03-13 12:01 | MM ---
Reason for Exam: Screening (asymptomatic). Last screening mammogram was performed 12 month(s) ago. Patient History: Menarche at age 14. First Full-Term at age 24. Postmenopausal. Risk Values: Madelyn 5 year model risk: 1.6%. NCI Lifetime model risk: 3.0%. Prior Study Comparison: 03/04/2021 Bilateral Screening Mammogram, [facility]. 03/06/2022 Bilateral MG 3D screening mammo w/cad, [facility]. 03/09/2023 Bilateral MG 3D screening mammo w/cad, [facility]. Tissue Density: There are scattered areas of fibroglandular density. Findings: Analyzed By CAD. Right breast: There is no suspicious group of microcalcifications or new suspicious mass. Left breast: There is no suspicious group of microcalcifications or new suspicious mass. Overall Assessment: Negative, BI-RAD 1 Management: Screening Mammogram of both breasts in [address] [facility] will attempt to contact patient to return for supplemental views and ultrasound if indicated. Patient should continue monthly self-breast exams. A clinical breast exam by your physician is recommended on an annual basis. This exam should not preclude additional follow-up of suspicious palpable abnormalities. Note on Madelyn scores and lifetime risk: 1. A Madelyn score greater than 3% is considered moderate risk. If this is the case, consider specialist referral to assess eligibility for a risk reducing agent. 2. If overall lifetime risk for the development of breast cancer is 20% or higher, the patient may qualify for future screening with alternating mammogram and breast MRI. [facility], , 03/13/2024 11:58 AM. Electronically signed and approved by: Rajeev Harrington DO
== END | disposition home or self-care (01) ==
LOC: RADMAMWWP 09:58
PROVIDERS: ATTEND Family Medicine
DX: Z12.31 Encounter for screening mammogram for malignant neoplasm of breast (principal); R92.323 Mammographic fibroglandular density, bilateral breasts; Z78.0 Asymptomatic menopausal state
CPT/HCPCS: 77063; 77067

== ENCOUNTER 2024-07-06 04:23 | Observation (INO) | payer MEDICARE ==
[2024-07-06] MEDS: MORPHINE SULFATE 4 MG/ML SYRINGE IM STA (06:15)
--- NOTE | 2024-07-06 06:52 | ED ---
Fall HPI - General Chief Complaint: Fall Stated Complaint: Fall Time Seen by Provider: 07/06/24 05:01 Source: patient Mode of arrival: wheelchair - History of Present Illness Initial Comments: This patient is a 78-year-old woman who presents to have evaluation after she had a fall last night. The patient states that she struck her right knee also the right brow above her eye and she states that the left side of her ankle/foot is also sore. The patient states that she went home and rested but the pain in the knee worsened so she presents mainly to have evaluation there. She states that the pain at the brow is minimal. She is not having headache. She also does have persistent pain to the lateral portion of the left foot/ankle. MD Complaint: fall Onset/Timin -: hour(s) Fall From: standing When Fall Occurred: other (Approximately 7 hours) Fall Witnessed: yes, by family Place Fall Occurred: street Loss of Consciousness: none Prolonged Down Time?: no Symptoms Prior to Fall: none Location - Extremities: Left: Foot, Right: Knee Severity: moderate Quality: sharp, aching Context: tripped/slipped Associated Symptoms: denies - Related Data Home Medications Medication Instructions Recorded Confirmed Aspirin 81 mg PO DAILY 04/17/18 07/06/24 Cyanocobalamin [Vitamin B-12] 500 mcg PO DAILY 04/17/18 07/06/24 Pravastatin Sodium [Pravachol] 20 mg PO HS 04/17/18 07/06/24 Timolol 0.5% Ophth Soln [Timoptic 1 drop BOTH EYES BID 04/17/18 07/06/24 0.5% Ophth Soln] Brimonidine Tartrate [Alphagan P 1 drop BOTH EYES BID 07/06/24 07/06/24 0.2% Ophth Soln] Cholecalciferol (Vitamin D3) 50 mcg PO DAILY 07/06/24 07/06/24 [Vitamin D3 (50 Mcg = 2000 Iu)] Previous Rx's Medication Instructions Recorded Sennosides [Senokot] 2 tab PO DAILY PRN #60 tablet 07/06/24 traMADol HCl [Ultram] 50 mg PO Q6H PRN #28 tab 07/06/24 Ondansetron Odt [Zofran Odt] 1 tab PO Q8HR PRN #10 tab 07/07/24 amLODIPine [Norvasc] 5 mg PO DAILY 30 Days #30 tab 07/08/24 carvediloL [Coreg] 3.125 mg PO BID-W/MEALS 30 Days 07/08/24 #60 tab Allergies Allergy/AdvReac Type Severity Reaction Status Date / Time hydrocodone [From Vicodin] Allergy Anaphylaxis Verified 07/06/24 08:49 propoxyphene Allergy Anaphylaxis Verified 07/06/24 08:49 [From Darvocet-N 100] Review of Systems ROS Statement: Those systems with pertinent positive or pertinent negative responses have been documented in the HPI. ROS Other: All systems not noted in ROS Statement are negative. Constitutional: Denies: fever, weakness Eyes: Denies: eye pain, vision change ENT: Denies: epistaxis Respiratory: Denies: cough, dyspnea Cardiovascular: Denies: chest pain, palpitations, edema Gastrointestinal: Denies: abdominal pain, nausea, vomiting, diarrhea Genitourinary: Denies: dysuria, hematuria Musculoskeletal: Reports: as per HPI, joint swelling, arthralgia. Denies: back pain Skin: Denies: rash Neurological: Denies: headache, weakness, numbness Hematological/Lymphatic: Denies: easy bleeding Past Medical History Past Medical History: Eye Disorder, Hyperlipidemia, Myocardial Infarction ([place]) Additional Past Medical History / Comment(s): diverticulitis and blockage,glaucoma blane eyes Last Myocardial Infarction Date:: unk History of Any Multi-Drug Resistant Organisms: None Reported Additional Past Surgical History / Comment(s): blane frozen shoulders,ganglion cyst removed from wrist Past Anesthesia/Blood Transfusion Reactions: Motion Sickness, Postoperative Nausea & Vomiting (PONV) Additional Past Anesthesia/Blood Transfusion Reaction / Comment(s): no hx blood transfusion Past Psychological History: Anxiety Past Alcohol Use History: Rare Past Drug Use History: None Reported - Past Family History Mother Family Medical History: Cancer Father Family Medical History: Coronary Artery Disease (CAD), Diabetes Mellitus Brother(s) Family Medical History: Coronary Artery Disease (CAD) Sister(s) History Unknown: Yes Daughter(s) Family Medical History: Thyroid Disorder Son(s) History Unknown: Yes (Diverticular disease) General Exam Limitations: no limitations General appearance: alert, in no apparent distress Head exam: Present: normocephalic, other (Small contusion with abrasion right eyebrow. No bony tenderness or deformity.) Eye exam: Present: normal appearance, PERRL, EOMI, periorbital swelling, periorbital tenderness. Absent: scleral icterus, conjunctival injection, nystagmus Neck exam: Present: normal inspection, full ROM. Absent: tenderness, meningismus Respiratory exam: Present: normal lung sounds bilaterally. Absent: respiratory distress, wheezes, rales, rhonchi, stridor, chest wall tenderness, accessory muscle use Cardiovascular Exam: Present: regular rate, normal rhythm, normal heart sounds. Absent: systolic murmur, diastolic murmur, rubs, gallop GI/Abdominal exam: Present: soft. Absent: distended, tenderness, guarding, rebound, rigid, mass Extremities exam: Present: normal inspection, normal capillary refill. Absent: pedal edema, calf tenderness Back exam: Present: normal inspection. Absent: CVA tenderness (R), CVA tenderness (L) Neurological exam: Present: alert Skin exam: Present: warm, dry, intact, normal color. Absent: rash Course Vital Signs 07/06/24 07/06/24 07/06/24 04:24 06:06 08:43 Temperature 97.7 F 98 F Pulse Rate 74 59 L 81 Respiratory 17 18 16 Rate Blood Pressure 199/96 196/87 179/88 O2 Sat by Pulse 100 99 99 Oximetry Medical Decision Making - Medical Decision Making The patient had right knee x-ray that I interpreted as revealing nondisplaced right patella fracture. The patient had left ankle and left foot x-rays that I interpreted to show proximal fifth metatarsal fracture. The patient does have fractures to both bilateral lower extremities and states she does not think she will be able to walk or bear weight. In light of that patient Case discussed with Dr. Ocampo who will admit patient to evaluate, and then consider rehab placement. Was pt. sent in by a medical professional or institution (, PA, COMMODITY BUYER, urgent care, hospital, or fpc...) When possible be specific @ -[No] Did you speak to anyone other than the patient for history (EMS, parent, family, police, friend...)? What history was obtained from this source @ -[No] Did you review nursing and triage notes (agree or disagree)? Why? @ -[I reviewed and agree with nursing and triage notes] Were old charts reviewed (outside hosp., previous admission, EMS record, old EKG, old radiological studies, urgent care reports/EKG's, fpc records)? Report findings @ -[No old charts were reviewed] Differential Diagnosis (chest pain, altered mental status, abdominal pain women, abdominal pain men, vaginal bleeding, weakness, fever, dyspnea, syncope, headache, dizziness, GI bleed, back pain, seizure, CVA, palpatations, mental health, musculoskeletal)? @ -[Differential Musculoskeletal Muscular strain, contusion, ligament sprain, fracture, arthritis, septic arthritis, bursitis, cellulitis, muscle spasm, nerve compression, DVT, arterial occlusion, herpes zoster, electrolyte abnormality, tumor.... This is not meant to be in all inclusive list EKG interpreted by me (3pts min.). @ -[As above] X-rays interpreted by me (1pt min.). @ -[I interpreted as above CT interpreted by me (1pt min.). @ -[None done] U/S interpreted by me (1pt. min.). @ -[None done] What testing was considered but not performed or refused? (CT, X-rays, U/S, labs)? Why? @ -[None] What meds were considered but not given or refused? Why? @ -[None] Did you discuss the management of the patient with other professionals (professionals i.e. , PA, COMMODITY BUYER, lab, RT, psych nurse, social media project manager, pharmacist hospital, teacher, operations officer afloat, family caseworker)? Give summary @ -[Case discussed with admitting physician and treatment recommendations are incorporated Was smoking cessation discussed for >3mins.? @ -[No] Was critical care preformed (if so, how long)? @ -[No] Were there social determinants of health that impacted care today? How? (Homelessness, low income, unemployed, alcoholism, drug addiction, transportation, low edu. Level, literacy, decrease access to med. care, fdc, rehab)? @ -[No] Was there de-escalation of care discussed even if they declined (Discuss DNR or withdrawal of care, Hospice)? DNR status @ -[No] What co-morbidities impacted this encounter? (DM, HTN, Smoking, COPD, CAD, Cancer, CVA, ARF, Chemo, Hep., AIDS, mental health diagnosis, sleep apnea, morbid obesity)? @ -[None] Was patient admitted / discharged? Hospital course, mention meds given and route, prescriptions, significant lab abnormalities, going to OR and other pertinent info. @ -[See above Undiagnosed new problem with uncertain prognosis? @ -[No] Drug Therapy requiring intensive monitoring for toxicity (Heparin, Nitro, Insulin, Cardizem)? @ -[No] Were any procedures done? @ -[No] Diagnosis/symptom? @ -[Acute right patella fracture Acute left fifth metatarsal fracture Acute, or Chronic, or Acute on Chronic? @ -[Acute Uncomplicated (without systemic symptoms) or Complicated (systemic symptoms)? @ -[Uncomplicated Side effects of treatment? @ -[No] Exacerbation, Progression, or Severe Exacerbation? @ -[No] Poses a threat to life or bodily function? How? (Chest pain, [place], [place], pneumonia, PE, COPD, DKA, ARF, appy, cholecystitis, CVA, Diverticulitis, Homicidal, Suicidal, threat to staff... and all critical care pts) @ -[No] All treatments are based on ideal body weight as in ED triage - Lab Data Result diagrams: 07/08/24 03:30 07/08/24 03:30 Disposition Clinical Impression: Fall, Patella fracture, Fracture of fifth metatarsal bone of left foot Disposition: ADMITTED IP TO THIS HOSP Condition: Good Is patient prescribed a controlled substance at d/c from ED?: No
--- NOTE | 2024-07-06 07:24 | XR ---
EXAMINATION TYPE: XR knee complete RT DATE OF EXAM: 07/06/2024 6:01 AM COMPARISON: None. CLINICAL INDICATION: Female, 78 years old with history of fall injury, pain TECHNIQUE: 3 view(s) obtained. FINDINGS: No joint effusion is evident. There are some lucencies within the patella suspicious for nondisplaced fractures. Correlate with location of the patient's pain Joint spaces are preserved. No additional areas suspicious for fracture evident. IMPRESSION: 1. Clinical correlation for nondisplaced fractures of the patella. No accompanying joint fluid is ev ident. [facility], , 07/06/2024 7:22 AM
--- NOTE | 2024-07-06 07:24 | XR ---
EXAMINATION TYPE: XR ankle complete LT DATE OF EXAM: 07/06/2024 6:00 AM COMPARISON: None. CLINICAL INDICATION: Female, 78 years old with history of fall injury, pain TECHNIQUE: 3 view(s) obtained. FINDINGS: Ankle mortise is intact. There is soft tissue swelling over the lateral malleolus. Couple of tiny sec ondary ossification centers inferior to the lateral malleolus. There is a transverse fracture base fifth metatarsal. IMPRESSION: 1. Transverse fracture base of the fifth metatarsal. 2. Soft tissue swelling lateral malleolus. [facility], , 07/06/2024 7:22 AM
--- NOTE | 2024-07-06 07:25 | XR ---
EXAMINATION TYPE: XR foot complete LT DATE OF EXAM: 07/06/2024 6:53 AM COMPARISON: None. CLINICAL INDICATION: Female, 78 years old with history of fall injury, pain TECHNIQUE: 3 view(s) obtained. FINDINGS: There is a transverse fracture at the base of the fifth metatarsal. No additional fracture. Joint spa celestine appear preserved. Some soft tissue swelling at the lateral malleolus is noted. IMPRESSION: 1. Transverse fracture base fifth metatarsal. [facility], , 07/06/2024 7:23 AM
[2024-07-06] MEDS ORDERED: NALOXONE 0.4 MG/ML 1 ML VIAL IV PRN (07:49)
[2024-07-06] MEDS ORDERED: IBUPROFEN 400 MG TAB PO PRN (07:49)
[2024-07-06] MEDS ORDERED: traMADol 50 MG TAB PO PRN (07:49)
[2024-07-06] MEDS ORDERED: ALPRAZolam 0.25 MG TAB PO PRN (07:52)
[2024-07-06] MEDS: carvediloL 3.125 MG TAB PO SCH ×2 (08:32→18:20)
[2024-07-06] MEDS: CHOLECALCIFEROL 25 MCG (1000 IU) TABLET PO SCH (08:37)
[2024-07-06] MEDS: CYANOCOBALAMIN 500 MCG TAB PO SCH (08:38)
[2024-07-06] MEDS: FAMOTIDINE 20 MG TAB PO SCH (08:38)
[2024-07-06] MEDS: PRAVASTATIN SODIUM 20 MG TAB PO SCH (08:38)
[2024-07-06] MEDS: TIMOLOL 0.5% OPHTH DROPS 5 ML BTL BOTH EYES SCH (08:38)
[2024-07-06] MEDS: ASPIRIN 81 MG PO SCH (08:38)
[2024-07-06] MEDS: SODIUM CHLORIDE 0.9% 1,000 ML IV SCH (09:31)
--- NOTE | 2024-07-06 10:00 | P.HPOR ---
History of Present Illness H&P Date: 07/06/24 This is a 78-year-old female who is admitted after a fall. Patient states that she had a mechanical fall on 07/05/2024. Patient was evaluated in the emergency room where x-rays revealed a nondisplaced patella fracture of the right knee and a nondisplaced left fifth metatarsal fracture. Patient is seen and evaluated at bedside in the emergency room today. Patient states that her pain is well- controlled today, but she has not been out of bed yet. Patient's past medical history significant for glaucoma, diverticulitis, hyperlipidemia and history of myocardial infarction. Patient denies any fever/chills, chest pain, shortness breath, abdominal pain, numbness, weakness or tingling. Review of Systems See HPI. Past Medical History Past Medical History: Eye Disorder, Hyperlipidemia, Myocardial Infarction ([place]) Additional Past Medical History / Comment(s): diverticulitis and bl ockage,glaucoma blane eyes Last Myocardial Infarction Date:: unk History of Any Multi-Drug Resistant Organisms: None Reported Additional Past Surgical History / Comment(s): blane frozen shoulders,ganglion cyst removed from wrist Past Anesthesia/Blood Transfusion Reactions: Motion Sickness, Postoperative Nausea & Vomiting (PONV) Additional Past Anesthesia/Blood Transfusion Reaction / Comment(s): no hx blood transfusion Past Psychological History: Anxiety Past Alcohol Use History: Rare Past Drug Use History: None Reported - Past Family History Mother Family Medical History: Cancer Father Family Medical History: Coronary Artery Disease (CAD), Diabetes Mellitus Brother(s) Family Medical History: Coronary Artery Disease (CAD) Sister(s) History Unknown: Yes Daughter(s) Family Medical History: Thyroid Disorder Son(s) History Unknown: Yes (Diverticular disease) Medications and Allergies Home Medications Medication Instructions Recorded Confirmed Type Aspirin 81 mg PO DAILY 04/17/18 07/06/24 History Cyanocobalamin [Vitamin B-12] 500 mcg PO DAILY 04/17/18 07/06/24 History Pravastatin Sodium [Pravachol] 20 mg PO HS 04/17/18 07/06/24 History Timolol 0.5% Ophth Soln [Timoptic 1 drop BOTH EYES BID 04/17/18 07/06/24 History 0.5% Ophth Soln] Brimonidine Tartrate [Alphagan P 1 drop BOTH EYES BID 07/06/24 07/06/24 History 0.2% Ophth Soln] Cholecalciferol (Vitamin D3) 50 mcg PO DAILY 07/06/24 07/06/24 History [Vitamin D3 (50 Mcg = 2000 Iu)] Sennosides [Senokot] 2 tab PO DAILY PRN #60 tablet 07/06/24 Rx traMADol HCl [Ultram] 50 mg PO Q6H PRN #28 tab 07/06/24 Rx Allergies Allergy/AdvReac Type Severity Reaction Status Date / Time hydrocodone [From Vicodin] Allergy Anaphylaxis Verified 07/06/24 08:49 propoxyphene Allergy Anaphylaxis Verified 07/06/24 08:49 [From Darvocet-N 100] Physical Examination On exam patient is resting comfortably in bed in no acute distress. Patient is alert and oriented 3. Right lower extremity: There is a small abrasion over the anterior aspect of the right knee. No surrounding erythema, drainage or warmth. The right knee is tender to palpation over the patella. Patient is able to perform an active straight leg raise. 5/5 strength of the right lower extremity. Limited motion of the right knee secondary to her patella fracture. Calf is soft and nontender to palpation. Full motion of the right foot and ankle. Sensation intact. Neurovascular status and circulatory status are intact. Left lower extremity: Skin is intact. There is no significant swelling, erythema or ecchymosis. There is tenderness to palpation over the lateral aspect of the left foot. No tenderness to palpation over the left ankle. Patient has good motion of the left foot and ankle. Calf is soft and nontender to palpation. Sensation intact. Neurovascular status and circulatory status are intact. Head is normocephalic and atraumatic. Patient has good motion of the head and neck. Exams of bilateral upper extremities are within normal limits. Results An x-ray report of the left foot dated 07/06/2024 reveal: 1. Transverse fracture of base of fifth metatarsal. An x-ray report of the left ankle dated 07/06/2024 shows: 1. Transverse fracture base of the fifth metatarsal. 2. Soft tissue swelling lateral malleolus. An x-ray report of the right knee dated 07/06/2024 shows: 1. Clinical correlation for nondisplaced fractures of the patella. No accompanying joint fluid is evident. - Labs Result Diagrams: 07/06/24 14:27 07/06/24 14:27 Assessment and Plan (1) Fall Current Visit: Yes Status: Acute Code(s): W19.XXXA - UNSPECIFIED FALL, INITIAL ENCOUNTER SNOMED Code(s): 1287409 (2) Fracture of fifth metatarsal bone of left foot Current Visit: Yes Status: Acute Code(s): S92.352A - DISP FX OF FIFTH METATARSAL BONE, LEFT FOOT, INIT SNOMED Code(s): 241177478 (3) Patella fracture Current Visit: Yes Status: Acute Code(s): S82.009A - UNSP FRACTURE OF UNSP P ATELLA, INIT FOR CLOS FX SNOMED Code(s): 66312325 (4) Right patella fracture Current Visit: Yes Status: Acute Code(s): S82.001A - UNSP FRACTURE OF RIGHT PATELLA, INIT FOR CLOS FX SNOMED Code(s): 41550011 Plan: 1. X-rays are reviewed revealing a nondisplaced fracture of the right patella and a nondisplaced fracture of the left fifth metatarsal. Recommend weightbearing as tolerated to bilateral lower extremities with knee immobilizer in place for the right lower extremity and short cam boot or postop shoe in place for the left foot. Patient is to use a walker when ambulating. 2. Continue pain control. 3. Recommend physical therapy for mobilization. 4. There is no surgical indication. Patient may discharge home with outpatient follow-up after she is able to mobilize with her knee immobilizer and short CAM boot/post op shoe in place. Case management is consulted to obtain short cam boot. All questions and concerns are addressed at bedside with the patient and her today. Patient was seen and independently evaluated and I agree with the above history exam and plan Jasper Ocampo MD
[2024-07-06] MEDS: MORPHINE SULFATE 4 MG/ML SYRINGE IV PRN (10:12)
[2024-07-06] MEDS: ONDANSETRON 4 MG/2 ML VIAL IVP PRN (10:38)
[2024-07-06] MEDS ORDERED: PROCHLORPERAZINE INJ 10 MG/2 ML VIAL IVP PRN (13:58)
--- NOTE | 2024-07-06 14:06 | P.CONS ---
History of Present Illness - Reason for Consult Consult date: 07/06/24 - History of Present Illness Patient is a 78-year-old female with past medical history of CAD with inferior wall WA per chart review, HLD, diverticulitis, who presented to the ER after mechanical fall on 07/05/2024.. Patient shares that she was coming back from a dinner, was in her usual state of health, and she just misstepped on her son's driveway, she hit her head and her lower extremities. No loss of consciousness. Patient actually denies having history of heart attack, hypertension, she states that she followes up with informatics application analyst at [place], not sure was the reason, she is not on any blood pressure medications at home, states that when her blood pressure is checked in the office, the numbers have always good. She sees her primary care physician once a year and on an as needed basis. On my evaluation patient complains of some confusion as she has not slept for 2 nights, states that she probably is under pain medication effect as well, complains of nausea, Zofran helps. Given history of head trauma, ongoing nausea and vomiting, stat CT head ordered as well as CBC, CMP, TSH Underwent extensive workup in the ER, left lower extremity x-ray showed transverse fracture of the base of the fifth metatarsal, soft tissues swelling on the lateral malleolus, right knee x-ray showed nondisplaced fracture of the right patella. Patient was admitted under orthopedic surgery service, sound physicians consulted for medical management. Orthopedic surgery recommended weightbearing as tolerated to bilateral lower extremities with knee immobilizer on the right as well as short cam boot for the left foot, walker with ambulation, PT, pain control, no surgical intervention. Reviewed patient's vital signs, she is afebrile with heart rate in 60s to 70s, elevated blood pressure 199/96, down to 166/84, satting well on room air. No blood work available from this admission, most recent blood work dated in 2019. Pertinent positives and negatives as discussed in HPI, a complete review of systems was performed and all other systems are negative. Patient seen and examined at bedside. Vital signs reviewed General: nontoxic, no distress, appears at stated age Derm: warm, dry Head: atraumatic, normocephalic, symmetric,small right sided frontal excoriation Eyes: EOMI, no lid lag, anicteric sclera, pupils equal round reactive to light, 2 mm ENT: Nose and ears atraumatic Neck: No thyromegaly, supple Mouth: no lip lesion, mucus membranes moist Cardiovascular: S1S2 reg, no murmur, no edema Lungs: clear to auscultation bilateral, no rhonchi, no rales, no wheeze, no accessory muscle use Abdominal: soft, nontender to palpation, no guarding, no appreciable organomegaly Ext: Left lower extremity foot right lower extremity immobilized, no swelling Neuro: CN II-XII grossly intact Psych: Alert, oriented, appropriate affect, needed some redirection Assessment/Plan: Elevated blood pressure readings without diagnosis of HTN Hyperlipidemia CAD with history of inferior wall WA per chart review, however patient denies - Continue home aspirin 81 mg p.o. daily, was started on Coreg 3.125 p.o. twice daily in the ER, will continue for now and monitor blood pressure closely, c ontinue pravastatin 20 mg p.o. daily Status post fall with head trauma -Stat CT head, CBC, CMP, TSH ordered, discussed with RN -Patient does not have any focal symptoms, her pupils are equal and reactive to light Nausea, vomiting -Continue Zofran 4 mg IV every 6 hours as needed, added Compazine 5 mg IV every 4 hours as needed Nondisplaced right patella fracture Nondisplaced left fifth metatarsal fracture -Your orthopedic management, pain control, bowel regimen, VTE prophylaxis -PT DVT prophylaxis: SCD Thank you for this consultation Past Medical History Past Medical History: Eye Disorder, Hyperlipidemia, Myocardial Infarction (WA) Additional Past Medical History / Comment(s): diverticulitis and blockage,glaucoma blane eyes Last Myocardial Infarction Date:: unk History of Any Multi-Drug Resistant Organisms: None Reported Additional Past Surgical History / Comment(s): blane frozen shoulders,ganglion cyst removed from wrist Past Anesthesia/Blood Transfusion Reactions: Motion Sickness, Postoperative Nausea & Vomiting (PONV) Additional Past Anesthesia/Blood Transfusion Reaction / Comm: no hx blood transfusion Past Psychological History: Anxiety Past Alcohol Use History: Rare Past Drug Use History: None Reported - Past Family History Mother Family Medical History: Cancer Father Family Medical History: Coronary Artery Disease (CAD), Diabetes Mellitus Brother(s) Family Medical History: Coronary Artery Disease (CAD) Sister(s) History Unknown: Yes Daughter(s) Family Medical History: Thyroid Disorder Son(s) History Unknown: Yes (Diverticular disease) Medications and Allergies Home Medications Medication Instructions Recorded Confirmed Type Aspirin 81 mg PO DAILY 04/17/18 07/06/24 History Cyanocobalamin [Vitamin B-12] 500 mcg PO DAILY 04/17/18 07/06/24 History Pravastatin Sodium [Pravachol] 20 mg PO HS 04/17/18 07/06/24 History Timolol 0.5% Ophth Soln [Timoptic 1 drop BOTH EYES BID 04/17/18 07/06/24 History 0.5% Ophth Soln] Brimonidine Tartrate [Alphagan P 1 drop BOTH EYES BID 07/06/24 07/06/24 History 0.2% Ophth Soln] Cholecalciferol (Vitamin D3) 50 mcg PO DAILY 07/06/24 07/06/24 History [Vitamin D3 (50 Mcg = 2000 Iu)] Sennosides [Senokot] 2 tab PO DAILY PRN #60 tablet 07/06/24 Rx traMADol HCl [Ultram] 50 mg PO Q6H PRN #28 tab 07/06/24 Rx Allergies Allergy/AdvReac Type Severity Reaction Status Date / Time hydrocodone [From Vicodin] Allergy Anaphylaxis Verified 07/06/24 08:49 propoxyphene Allergy Anaphylaxis Verified 07/06/24 08:49 [From Darvocet-N 100] Physical Exam Vitals: Vital Signs Temp Pulse Pulse Resp BP BP Pulse Ox 07/06/24 13:08 98.4 F 62 15 166/84 98 07/06/24 08:43 98 F 81 16 179/88 99 07/06/24 06:06 59 L 18 196/87 99 07/06/24 04:24 97.7 F 74 17 199/96 100 Intake and Output 07/05/24 07/06/24 07/06/24 22:59 06:59 14:59 Other: Weight 61.235 kg 61.235 kg
[2024-07-06] MEDS ORDERED: DEXTROSE 50% SYRINGE 50 ML IVP PRN ×2 (14:07)
[2024-07-06 14:37] LABS: Basophils # (A) 0.01 10*3/uL (0.00-0.10); Basophils % (A) 0.1 %; Eosinophils # (A) 0.04 10*3/uL (0.04-0.35); Eosinophils % (A) 0.6 %; HCT 44.7 % (37.2-46.3); Lymphocytes # (A) 1.55 10*3/uL (0.90-5.00); Lymphocytes % (A) 21.9 %; MCH 31.8 pg (27.0-32.0); MCHC 33.6 g/dL (32.0-37.0); MCV 94.7 fL (80.0-97.0); Mean Platelet Volume 9.4 fL (9.5-12.2); Monocytes # (A) 0.58 10*3/uL (0.20-1.00); Monocytes % (A) 8.2 %; Neutrophils # (A) 4.89 10*3/uL (1.80-7.70); Neutrophils % (A) 68.9 %; Platelet Count 190 10*3/uL (140-440); RBC 4.72 10*6/uL (4.10-5.20); RDW 12.8 % (11.5-14.5); WBC 7.09 10*3/uL (4.50-10.00)
[2024-07-06 14:57] LABS: ALT 15 U/L (4-34); AST 26 U/L (14-36); African American GFR (CKD) 79 (>60 ml/min/1.73 sqM); Albumin 4.4 g/dL (3.5-5.0); Albumin/Globulin Ratio 1.2; Alkaline Phosphatase 95 U/L (38-126); Anion Gap 11 mmol/L; Blood Urea Nitrogen 14 mg/dL (7-17); Calcium 10.2 mg/dL (8.4-10.2); Carbon Dioxide 29 mmol/L (22-30); Chloride 101 mmol/L (98-107); Globulin 3.6 g/dL; Glucose 125 mg/dL (74-99); Non-African American GFR(CKD) 69 (>60 ml/min/1.73 sqM); Sodium 141 mmol/L (137-145); Total Bilirubin 0.7 mg/dL (0.2-1.3)
[2024-07-06 16:12] LABS: Glucose,Whole Blood 131 mg/dL (70-110)
[2024-07-06] MEDS: INSULIN LISPRO (HumaLOG) 100 UNIT/ML 10 mL VL SQ SCH (16:14)
--- NOTE | 2024-07-06 17:13 | CT ---
EXAMINATION TYPE: CT brain wo con DATE OF EXAM: 07/06/2024 5:07 PM COMPARISON: None. CLINICAL INDICATION: Female, 78 years old with history of s/p fall with head trauma, confusion, Confu cristina after fall, head trauma TECHNIQUE: CT of the brain is performed utilizing 3 mm thick sections through the posterior fossa and 3 mm thick sections through the remaining calvarium. Study is performed within 24 hours of arrival to the hospital. Contrast used: mL of , (none if empty) CT DLP: 1047.4 mGycm, Automated exposure control for dose reduction was used. FINDINGS: No abnormal hyperdensity is present to suggest an acute intracranial hemorrhage. No mass lesion is evident. No acute infarcts are evident. Ventricles and sulci are appropriate for the patient age. Paranasal sinuses and mastoid air cells within the [id number] are clear. IMPRESSION: 1. No acute intracranial process. Follow up MRI can be performed as clinically indicated. [facility], , 07/06/2024 5:11 PM
[2024-07-06] MEDS ORDERED: carvediloL 6.25 MG TAB PO SCH (17:30)
[2024-07-06 20:14] LABS: Glucose,Whole Blood 204 mg/dL (70-110)
[2024-07-07 06:04] LABS: Glucose,Whole Blood 93 mg/dL (70-110)
[2024-07-07] MEDS: FAMOTIDINE 20 MG TAB PO SCH (08:03)
[2024-07-07 10:00] LABS: HCT 41.8 % (37.2-46.3); MCH 31.9 pg (27.0-32.0); MCHC 33.5 g/dL (32.0-37.0); MCV 95.2 fL (80.0-97.0); Mean Platelet Volume 9.6 fL (9.5-12.2); Platelet Count 171 10*3/uL (140-440); RBC 4.39 10*6/uL (4.10-5.20); RDW 12.9 % (11.5-14.5)
[2024-07-07 10:33] LABS: African American GFR (CKD) 74 (>60 ml/min/1.73 sqM); Anion Gap 8 mmol/L; Blood Urea Nitrogen 15 mg/dL (7-17); Calcium 9.3 mg/dL (8.4-10.2); Carbon Dioxide 28 mmol/L (22-30); Chloride 102 mmol/L (98-107); Glucose 113 mg/dL (74-99); Magnesium 1.9 mg/dL (1.6-2.3); Non-African American GFR(CKD) 64 (>60 ml/min/1.73 sqM); Potassium 3.8 mmol/L (3.5-5.1); Sodium 138 mmol/L (137-145)
--- NOTE | 2024-07-07 11:02 | P.PN ---
Subjective Progress Note Date: 07/07/24 This is a 78-year-old female who is admitted after a fall. Patient is seen and evaluated at bedside today. Patient states that she was able to work with physical therapy today, but states that the left foot is painful with weightbearing. Patient states that the postop shoe is difficult to walk in. Patient states that she is unable to do the stairs today because she felt nauseous. Otherwise, patient denies any new complaints today. Objective - Vital Signs Vital signs: Vital Signs Temp 98.2 F 07/07/24 07:21 Pulse 74 07/07/24 07:21 Resp 16 07/07/24 07:21 BP 158/67 07/07/24 07:21 Pulse Ox 96 07/07/24 07:21 FiO2 Intake & Output 07/06/24 07/07/24 07/07/24 18:59 06:59 18:59 Weight 61.235 kg Other: Voiding Method Bedside Commode # Voids 0 1 - Exam On exam patient is resting comfortably in bed in no acute distress. Patient is alert and oriented 3. Left lower extremity: Postop shoe is intact. Patient has good motion of the left foot and ankle. There is minimal soft tissue swelling. Left lower extremity is warm and well-perfused. Sensation intact. Calf is soft and nontender to palpation over Right lower extremity: Knee immobilizer intact to the right lower extremity. Right lower extremity is warm and well-perfused. Patient has full motion of the right foot and ankle. Sensation intact. Calf is soft and nontender to palpation. - Labs CBC & Chem 7: 07/07/24 09:50 07/07/24 09:50 Labs: Abnormal Lab Results - Last 24 Hours (Table) 07/06/24 07/06/24 07/06/24 Range/Units 14:27 14:27 16:09 MPV 9.4 L (9.5-12.2) fL Glucose 125 H (74-99) mg/dL POC Glucose (mg/dL) 131 H (70-110) mg/dL 07/06/24 07/07/24 Range/Units 20:13 09:50 MPV (9.5-12.2) fL Glucose 113 H (74-99) mg/dL POC Glucose (mg/dL) 204 H (70-110) mg/dL Assessment and Plan (1) Fall Current Visit: Yes Status: Acute Code(s): W19.XXXA - UNSPECIFIED FALL, INITIAL ENCOUNTER SNOMED Code(s): 6251025 (2) Fracture of fifth metatarsal bone of left foot Current Visit: Yes Status: Acute Code(s): S92.352A - DISP FX OF FIFTH METATARSAL BONE, LEFT FOOT, INIT SNOMED Code(s): 187335083 (3) Patella fracture Current Visit: Yes Status: Acute Code(s): S82.009A - UNSP FRACTURE OF UNSP PATELLA, INIT FOR CLOS FX SNOMED Code(s): 04232805 (4) Right patella fracture Current Visit: Yes Status: Acute Code(s): S82.001A - UNSP FRACTURE OF RIGHT PATELLA, INIT FOR CLOS FX SNOMED Code(s): 34668578 Plan: 1. Weightbearing as tolerated to bilateral lower extremities with knee immobilizer in place for the right lower extremity and short cam boot or postop shoe in place for the left foot. Patient is to use a walker when ambulating. 2. Continue pain control. 3. Recommend physical therapy for mobilization. 4. Patient may discharge home with outpatient follow-up after she is able to mobilize with her knee immobilizer and short CAM boot/post op shoe in place. Case management is consulted to obtain short cam boot. All questions and concerns are addressed at bedside with the patient and her today. Anticipate discharge home tomorrow after she obtains her CAM boot and is able to work with physical therapy.
[2024-07-07 11:09] LABS: Glucose,Whole Blood 110 mg/dL (70-110)
[2024-07-07 13:36] LABS: Appearance,Urine Clear (Clear); Bacteria,Urine Rare /hpf; Bilirubin,Urine Negative (Negative); Blood,Urine Trace (Negative); Color,Urine Colorless; Glucose,Urine (UA) Negative (Negative); Hyaline Casts,Urine 1 /lpf (0-2); Ketones,Urine Negative (Negative); Leukocyte Esterase,Urine Negative (Negative); Mucus,Urine Rare /hpf; Nitrite,Urine Negative (Negative); PH, Urine 5.5 (5.0-8.0); Protein,Urine Negative (Negative); RBC,Urine 3 /hpf (0-5); Specific Gravity,Urine 1.013 (1.001-1.035); Squamous Epithelial Cell,Urine <1 /hpf (0-4); Urobilinogen,Urine <2.0 mg/dL (<2.0); WBC,Urine 4 /hpf (0-5)
[2024-07-07] MEDS ORDERED: ACETAMINOPHEN TAB 325 MG TAB PO PRN (14:57)
--- NOTE | 2024-07-07 15:05 | P.PN ---
Subjective Progress Note Date: 07/07/24 Hospital course: Patient is a pleasant 78-year-old female with a past medical history of CAD, hyperlipidemia, glaucoma, and anxiety. She presented to the hospital on 07/06/2024 status post mechanical fall in which patient reports she tripped in her son's driveway resulting in right knee pain and a small abrasion to right side of head near brow bone. Patient denies having any loss of consciousness or any other injuries during this trip and fall. Upon arrival to our facility, patient underwent evaluation in the emergency department. Vital signs show blood pressure 199/96, heart rate 74, respiratory rate 17, temp 97.7 F, and SpO2 100% on room air. X-ray right knee showing a nondisplaced fracture of the patella. X-ray left ankle showing transverse fracture of the base of the left fifth metatarsal with soft tissue swelling over the lateral malleolus. Patient was admitted under orthopedic surgery team and we were consulted for medical management. Labs were completed. CBC unremarkable. BMP normal findings. Blood glucose 125. Hemoglobin A1c 6%. Calcium 10.2. Magnesium 1.9. Liver pr ofile unremarkable. TSH 2.280. CT brain was negative for acute intracranial process. Patient was started on carvedilol 3.125 mg twice daily with meals to optimize blood pressure control. Physical exam: Vital signs reviewed and stable. General: Nontoxic, no distress and appears stated age. Derm: Skin warm and dry, normal coloration for ethnicity. Head: Atraumatic, normocephalic and symmetric. Eyes: EOM's intact, no lid lag, and anicteric sclera Mouth: no lip lesions, mucus membranes moist Cardiovascular: regular rate and rhythm with normal S1S2, no murmur, positive posterior tibial pulses bilaterally, and cap refill < 2 seconds. Lungs: Respirations even, regular, and unlabored on room air. Lungs CTA bilaterally, no rhonchi, no rales, no wheezing, and no accessory muscle usage. Abdominal: soft, nontender to palpation, no guarding, no appreciable organomegaly Ext: No gross muscle atrophy, no edema, no contractures. Knee immobilizer in place right knee, left foot with postop shoe. Neuro: Speech clear, face symmetrical and CN II-XII grossly intact with no noted focal neuro deficits Psych: Alert and oriented to person, place, time, and situation. Appropriate and pleasant affect. Assessment and Plan of Care: Right patellar fracture Left fifth metatarsal fracture Mechanical fall -Management per primary admitting orthopedic surgery team including DVT prophylaxis, pain management, weightbearing, and PT/OT -Maintain fall precautions. -PT/OT consulted. -Symptomatic care and pain management with Tylenol 650 mg p.o. every 6 hours as needed for mild pain, tramadol 50 mg every 6 hours as needed for moderate pain, and morphine 4 mg IVP every 4 hours as needed for severe pain. Hypertensive urgency on arrival - Possibly multifactorial secondary to pain and anxiety over hospitalization. Blood pressures were trended and remained elevated and patient was started on carvedilol 3.125 mg twice daily showing improvement of hypertension. - Monitor vital signs and continue daily medication regimen with carvedilol 3.125 mg twice daily. Glaucoma -Continue famotidine ophthalmologic drops 1 drop bilateral eyes twice daily and timolol ophthalmologic drops 1 drop bilateral eyes daily. Hyperlipidemia -Continue pravastatin 20 mg daily. Data and imaging reviewed: -Repeat morning labs were completed and reviewed. CBC unremarkable. BMP normal findings. Blood glucose 113. Magnesium 1.9. - Vital signs reviewed. Blood pressure 158/67, heart rate 74, respiratory rate 16, temp 98.2, and SpO2 of 96% on room air. - CT head reviewed negative for acute intracranial process Thank you for allowing us to participate in the care of this pleasant patient. Do not hesitate to contact us with questions. Someone can be reached from the [facility] hospitalist group all hours of the day at [phone] or via perfect serve. Patient was seen independently by Nurse Pracitioner. This document was prepared using [employer] dictation software. Please allow for errors in field crop harvest contractor, while rare they do occur. Juan Pablo Reyes NP rendered care for this patient independently, reviewed the findings and plan as documented in the note above and agree with plan. I did not physically speak with or examine the patient on this date. Objective - Vital Signs Vital signs: Vital Signs Temp 98.2 F 07/07/24 07:21 Pulse 74 07/07/24 07:21 Resp 16 07/07/24 07:21 BP 158/67 07/07/24 07:21 Pulse Ox 96 07/07/24 07:21 FiO2 Intake & Output 07/06/24 07/07/24 07/07/24 18:59 06:59 18:59 Weight 61.235 kg Other: Voiding Method Bedside Commode # Voids 0 1 - Labs CBC & Chem 7: 07/07/24 09:50 07/07/24 09:50 Labs: Abnormal Lab Results - Last 24 Hours (Table) 07/06/24 07/06/24 07/06/24 Range/Units 14:27 14:27 16:09 MPV 9.4 L (9.5-12.2) fL Glucose 125 H (74-99) mg/dL POC Glucose (mg/dL) 131 H (70-110) mg/dL 07/06/24 Range/Units 20:13 MPV (9.5-12.2) fL Glucose (74-99) mg/dL POC Glucose (mg/dL) 204 H (70-110) mg/dL
[2024-07-07] MEDS: BRIMONIDINE TARTRATE 0.2% DROPS 5 ML BTL BOTH EYES SCH (20:16)
[2024-07-07 21:13] LABS: Glucose,Whole Blood 105 mg/dL (70-110)
[2024-07-08 02:34] VITALS: TEMP 97.6
[2024-07-08 06:29] LABS: Glucose,Whole Blood 93 mg/dL (70-110)
[2024-07-08 07:31] VITALS: RESP 16
[2024-07-08 08:16] LABS: HCT 42.4 % (37.2-46.3); HGB 13.8 g/dL (12.0-15.0); MCH 30.9 pg (27.0-32.0); MCHC 32.5 g/dL (32.0-37.0); MCV 95.1 FL (80.0-97.0); Mean Platelet Volume 10.3 FL (9.5-12.2); NRBC Per 100 WBC 0 X 10*3/uL (0.00-0.01); Platelet Count 187 X 10*3/uL (140-440); RBC 4.46 X 10*6/uL (4.10-5.20); RDW 12.9 % (11.5-14.5); WBC 6.72 X 10*3/uL (4.50-10.00)
[2024-07-08 08:20] LABS: BUN/Creat Ratio 14.89 Ratio (12.00-20.00); Blood Urea Nitrogen 13.4 mg/dL (9.0-27.0); Carbon Dioxide 25.2 mmol/L (21.6-31.8); Chloride 102 mmol/L (96-109); Glucose 98 mg/dL (70-110); Magnesium 1.8 mg/dL (1.5-2.4); Potassium 3.9 mmol/L (3.5-5.5); Sodium 139 mmol/L (135-145)
--- NOTE | 2024-07-08 09:03 | P.DS ---
Providers Date of admission: 07/06/24 07:51 Expected date of discharge: 07/08/24 Attending physician: Jasper Ocampo MD Consults: 07/06/24 07:49 Consult Physician Routine Consulting Provider: Deepak Fraga Consult Reason/Comments: Medical management Do you want consulting provider notified?: Yes Primary care physician: Marquis Reyes - Discharge Diagnosis(es) (1) Fall Current Visit: Yes Status: Acute (2) Fracture of fifth metatarsal bone of left foot Current Visit: Yes Status: Acute (3) Patella fracture Current Visit: Yes Status: Acute (4) Right patella fracture Current Visit: Yes Status: Acute Hospital Course: This is a 78-year-old female who sustained a fracture of her right patella and left fifth metatarsal after a fall. The patient presented for evaluation in the emergency room and x-rays revealed fractures of her right patella and left fifth metatarsal. Patient is admitted to [facility] on 07/06/2024. Labs and vital signs are stable on day of discharge. On day of discharge patient has good motion of the left foot and ankle. There is minimal soft tissue swelling. Left lower extremity is warm and well- perfused. Sensation intact. Calf is soft and nontender to palpation. Knee immobilizer intact to the right lower extremity and removed for exam. Small abrasion over the anterior aspect of the right knee without surrounding erythema or warmth. Right lower extremity is warm and well-perfused. Patient has full motion of the right foot and ankle. Sensation intact to bilateral lower extremities. Calf is soft and nontender to palpation bilateral lower extremities. Neurovascular status to bilateral lower extremities are intact. Patient is discharged home in good condition. Please see med rec for accurate list of home medications. Patient Condition at Discharge: Good Plan - Discharge Summary Discharge Rx Participant: No New Discharge Prescriptions: New traMADol HCl [Ultram] 50 mg PO Q6H PRN #28 tab PRN Reason: Pain amLODIPine [Norvasc] 5 mg PO DAILY 30 Days #30 tab Sennosides [Senokot] 2 tab PO DAILY PRN #60 tablet PRN Reason: Constipation Ondansetron Odt [Zofran Odt] 1 tab PO Q8HR PRN #10 tab PRN Reason: Nausea carvediloL [Coreg] 3.125 mg PO BID-W/MEALS 30 Days #60 tab Continue Cyanocobalamin [Vitamin B-12] 500 mcg PO DAILY Aspirin 81 mg PO DAILY Timolol 0.5% Ophth Soln [Timoptic 0.5% Ophth Soln] 1 drop BOTH EYES BID Pravastatin Sodium [Pravachol] 20 mg PO HS Brimonidine Tartrate [Alphagan P 0.2% Ophth Soln] 1 drop BOTH EYES BID Cholecalciferol (Vitamin D3) [Vitamin D3 (50 Mcg = 2000 Iu)] 50 mcg PO DAILY Discharge Medication List Aspirin 81 mg PO DAILY 04/17/18 [History] Cyanocobalamin [Vitamin B-12] 500 mcg PO DAILY 04/17/18 [History] Pravastatin Sodium [Pravachol] 20 mg PO HS 04/17/18 [History] Timolol 0.5% Ophth Soln [Timoptic 0.5% Ophth Soln] 1 drop BOTH EYES BID 04/17/18 [History] Brimonidine Tartrate [Alphagan P 0.2% Ophth Soln] 1 drop BOTH EYES BID 07/06/24 [History] Cholecalciferol (Vitamin D3) [Vitamin D3 (50 Mcg = 2000 Iu)] 50 mcg PO DAILY 07/06/24 [History] Sennosides [Senokot] 2 tab PO DAILY PRN #60 tablet 07/06/24 [Rx] traMADol HCl [Ultram] 50 mg PO Q6H PRN #28 tab 07/06/24 [Rx] Ondansetron Odt [Zofran Odt] 1 tab PO Q8HR PRN #10 tab 07/07/24 [Rx] amLODIPine [Norvasc] 5 mg PO DAILY 30 Days #30 tab 07/08/24 [Rx] carvediloL [Coreg] 3.125 mg PO BID-W/MEALS 30 Days #60 tab 07/08/24 [Rx] Follow up Appointment(s)/Referral(s): Jasper Ocampo MD [STAFF PHYSICIAN] - 10 Days Woody Reyes MD [Primary Care Provider] - 1-2 days Patient Instructions/Handouts: Foot Fracture in Adults (ED), Patellar Fracture (ED), Hypertension (DC) Activity/Diet/Wound Care/Special Instructions: Activity: As tolerated. Weightbearing as tolerated to bilateral lower extremities with a walker and braces intact. Knee immobilizer to right lower extremity and short cam boot/postop shoe to the left lower extremity. Diet: Heart healthy diet. Special Instructions: Take all of your medications as directed and remember to keep all of your doctor's appointments and follow-up as needed. Please follow-up with [facility] and call with any questions or concerns, . Secondary hypertension throughout your entire hospitalization, despite reports of controlled pain, you are being discharged home on antihypertensive medications, it is important to monitor your blood pressure closely twice daily at home and document these findings and a daily log to bring with you to your next follow-up with your PCP, Dr. Reyes as further adjustments may be needed to this medication regimen. Thank you for allowing us to participate in your care, it was truly a pleasure having you for our patient!!! Please follow up with [facility] and call with any questions or concerns, . Discharge Disposition: HOME SELF-CARE
[2024-07-08 10:01] VITALS: BP 162/83; PULSE 67
[2024-07-08] MEDS: amLODIPine 5 MG TAB PO SCH (10:07)
[2024-07-08 11:13] LABS: Glucose,Whole Blood 87 mg/dL (70-110)
--- NOTE | 2024-07-08 13:53 | P.PN ---
Subjective Progress Note Date: 07/08/24 Hospital course: Patient is a pleasant 78-year-old female with a past medical history of CAD, hyperlipidemia, glaucoma, and anxiety. She presented to the hospital on 07/06/2024 status post mechanical fall in which patient reports she tripped in her son's driveway resulting in right knee pain and a small abrasion to right side of head near brow bone. Patient denies having any loss of consciousness or any other injuries during this trip and fall. Upon arrival to our facility, patient underwent evaluation in the emergency department. Vital signs show blood pressure 199/96, heart rate 74, respiratory rate 17, temp 97.7 F, and SpO2 100% on room air. X-ray right knee showing a nondisplaced fracture of the patella. X-ray left ankle showing transverse fracture of the base of the left fifth metatarsal with soft tissue swelling over the lateral malleolus. Patient was admitted under orthopedic surgery team and we were consulted for medical management. Labs were completed. CBC unremarkable. BMP normal findings. Blood glucose 125. Hemoglobin A1c 6%. Calcium 10.2. Magnesium 1.9. Liver pr ofile unremarkable. TSH 2.280. CT brain was negative for acute intracranial process. Patient was started on carvedilol 3.125 mg twice daily with meals to optimize blood pressure control. Physical exam: Patient seen and fully evaluated at bedside. She reports controlled pain in right knee and left foot. Her blood pressure was quite elevated this morning, patient is adamant about taking antihypertensive medications but patient, patient's at bedside, and patient's son were educated on patient's persistent hypertension throughout entire hospitalization despite her pain control. Patient was educated on the importance of monitoring her blood pressure closely at home and documenting these findings and a daily log to bring with her to her follow-up appointment with her PCP. Patient verbalized understanding and denies having any other complaints including headache, lightheadedness, dizziness, chest pain, palpitations, shortness of breath, or experiencing any numbness in her extremities. General: Nontoxic, no distress and appears stated age. Derm: Skin warm and dry, normal coloration for ethnicity. Head: Atraumatic, normocephalic and symmetric. Eyes: EOM's intact, no lid lag, and anicteric sclera Mouth: no lip lesions, mucus membranes moist Cardiovascular: regular rate and rhythm with normal S1S2, no murmur, positive posterior tibial pulses bilaterally, and cap refill < 2 seconds. Lungs: Respirations even, regular, and unlabored on room air. Lungs CTA bilaterally, no rhonchi, no rales, no wheezing, and no accessory muscle usage. Abdominal: soft, nontender to palpation, no guarding, no appreciable organomegaly Ext: No gross muscle atrophy, no edema, no contractures. Knee immobilizer in place right knee, left foot with postop shoe. Neuro: Speech clear, face symmetrical and CN II-XII grossly intact with no noted focal neuro deficits Psych: Alert and oriented to person, place, time, and situation. Appropriate and pleasant affect. Assessment and Plan of Care: Right patellar fracture Left fifth metatarsal fracture Mechanical fall -Management per primary admitting orthopedic surgery team including DVT prophylaxis, pain management, weightbearing, and PT/OT -Maintain fall precautions. -PT/OT consulted. -Symptomatic care and pain management with Tylenol 650 mg p.o. every 6 hours as needed for mild pain, tramadol 50 mg every 6 hours as needed for moderate pain, and morphine 4 mg IVP every 4 hours as needed for severe pain. Hypertensive urgency on arrival -Possibly multifactorial secondary to pain and anxiety over hospitalization. Blood pressures were trended and remained elevated and patient was started on carvedilol 3.125 mg twice daily and later started on amlodipine 5 mg daily. Patient denies history of hypertension. But despite reports of total pain control patient's blood pressures have been consistently elevated and ranging from a low of 146/83 and high of 199/96. -Patient to be discharged on antihypertensive medication with carvedilol 3.125 mg twice daily and amlodipine 5 mg daily. She was instructed on monitoring her blood pressures closely at home twice daily and documenting in a daily log to bring with her to her next follow-up appointment with her PCP. Glaucoma -Continue famotidine ophthalmologic drops 1 drop bilateral eyes twice daily and timolol ophthalmologic drops 1 drop bilateral eyes daily. Hyperlipidemia -Continue pravastatin 20 mg daily. Data and imaging reviewed: - Morning labs were completed and reviewed. CBC unremarkable. BMP normal findings. Blood glucose 98. Magnesium 1.9. - Vital signs reviewed. Blood pressure elevated this morning at 192/90 with 162/83 after medication administration. Heart rate 72, respiratory rate 16, temp 97.6 F, and SpO2 of 97% on room air. Patient is medically optimized for discharge once cleared by primary admitting orthopedic surgery team. Again as stated above recommending discharge home on antihypertensive medication regimen with carvedilol 3.125 mg twice daily and amlodipine 5 mg daily and patient was educated and instructed on the importance of monitoring her blood pressures closely twice daily at home and documenting these results and a daily log to bring with her to her next follow-up appointment with her PCP. These instructions were given to patient, patient's at bedside, and patient's son. Discharge instructions also written for patient in discharge summary tab. Thank you for allowing us to participate in the care of this pleasant patient. Do not hesitate to contact us with questions. Someone can be reached from the [facility] [place] [facility] group all hours of the day at [phone] or via [employer]. Patient was seen independently by Nurse Pracitioner. This document was prepared using [employer] dictation software. Please allow for errors in [employer], while rare they do occur. Juan Pablo Reyes NP rendered care for this patient independently, reviewed the findings and plan as documented in the note above and agree with plan. I did not physically speak with or examine the patient on this date. . Objective - Vital Signs Vital signs: Vital Signs Temp 97.6 F 07/08/24 07:29 Pulse 72 07/08/24 07:29 Resp 16 07/08/24 07:29 BP 192/90 07/08/24 07:29 Pulse Ox 97 07/08/24 07:29 FiO2 Intake & Output 07/07/24 07/08/24 07/08/24 18:59 06:59 18:59 Other: # Voids 4 2 - Labs CBC & Chem 7: 07/08/24 03:30 07/08/24 03:30 Labs: Abnormal Lab Results - Last 24 Hours (Table) 07/07/24 07/07/24 Range/Units 09:50 13:00 Glucose 113 H (74-99) mg/dL Urine Blood Trace H (Negative) Urine Bacteria Rare H (None) /hpf Urine Mucus Rare H (None) /hpf
== END 2024-07-08 13:53 | disposition home or self-care (01) ==
LOC: EC 04:23 → 4SSUR 07:51
PROVIDERS: ADMIT Orthopaedic Surgery; ATTEND Orthopaedic Surgery
DX: S82.001A Unspecified fracture of right patella, initial encounter for closed fracture (principal); S92.355A Nondisplaced fracture of fifth metatarsal bone, left foot, initial encounter for closed fracture; S09.90XA Unspecified injury of head, initial encounter; W01.0XXA Fall on same level from slipping, tripping and stumbling without subsequent striking against object, initial encounter; I16.0 Hypertensive urgency; R11.2 Nausea with vomiting, unspecified; R73.03 Prediabetes; E78.5 Hyperlipidemia, unspecified; F41.9 Anxiety disorder, unspecified; I25.10 Atherosclerotic heart disease of native coronary artery without angina pectoris; I25.2 Old myocardial infarction; H40.9 Unspecified glaucoma; Z79.82 Long term (current) use of aspirin; Z79.899 Other long term (current) drug therapy; Z88.5 Allergy status to narcotic agent
CPT/HCPCS: 96372; 96374; 96375; 99285; 97116; 97162; 80053; 80048 ×2; 84443; 83735 ×2; 85025; 85027 ×2; 81001; 83036; 73562; 73610; 73630; 70450; G0378 ×3; J2270; J2405